=== PATIENT | male | born 1940 | race Caucasian/White ===

== ENCOUNTER → 2018-07-24 10:18 | Outpatient (CLI) | payer MEDICARE ==
--- NOTE | ~2018-07-24 | ST ---
PATIENT:SYMONE SANTOS MEDICAL RECORD: [id number] SEX: M LOCATION:[facility] ORDER #: ADMISSION DATE: 07/24/18 AGE OF PATIENT: 78 REFERRING PHYSICIAN: INTERPRETING PHYSICIAN: FARZANA XIE MD DATE OF SERVICE: 07/24/2018 PROCEDURE: Nuclear stress test. INDICATIONS: Angina, coronary artery disease, abnormal ECG, hypertension and hyperlipidemia. He was exercised under Tanner protocol for 5 minutes achieving greater than 85% of maximum heart rate response with 27 mCi of sestamibi injected at peak stress, 9 mCi used previously for rest images. FINDINGS: Gated SPECT reveals a preserved ejection fraction is 76% with decreased thickening and brightening throughout the inferior segments. SPECT IMAGING: Cardiolite was used as myocardial fusion agent. There is a fixed perfusion defect inferiorly. This includes the basal, mid, apical, and inferior segments. There is no reversibility, in fact this improves with stress showing reverse redistribution. The remaining segments are with homogeneous uptake at rest and stress. OVERALL IMPRESSION: This is minimally abnormal nuclear stress test, stable and that there is no reversible ischemia. Fixed perfusion defect inferoapically. Continue with medical management of the coronary artery disease and cardiac risk factors. TRANSINT:[id number] Voice Confirmation ID: [id number] DOCUMENT ID: [id number] FARZANA XIE MD CC: [id number] DICTATION DATE: 07/25/18 1138 CUTTING TOOL SHARPENER: 07/26/18 0017 DEP CLI 07/24/18 [facility] [address] [place] [address]
== END | disposition home or self-care (01) ==
LOC: D.HCCARDIO 10:18
PROVIDERS: ATTEND Internal Medicine Interventional Cardiology
DX: I25.119 Atherosclerotic heart disease of native coronary artery with unspecified angina pectoris (principal)

== ENCOUNTER 2018-09-14 13:24 | Inpatient (IN) | payer MEDICARE ==
[~2018-09-14] VITALS: Ht 175.3 cm; Wt 114.7 kg
[2018-09-14] VITALS (41 sets, daily range): BP systolic 88–129; BP diastolic 46–69; BMI 31.9
[2018-09-14 14:23] LABS: HEMATOCRIT 37.7 % (42.0-54.0); HEMOGLOBIN 13.6 g/dL (13.5-17.5); MCH 29.6 pg (26.0-34.0); MCHC 36.1 g/dL (31.0-37.0); MCV 82.1 fL (80.0-100.0); MEAN PLATELET VOLUME 11.1 fL (7.4-10.4); PLATELET COUNT 126 10x3/uL (130-400); RBC 4.59 10x6/uL (4.20-6.10); RDW 14.9 % (11.5-14.5); WBC 38.7 10x3/uL (4.8-10.8)
[2018-09-14 14:28] LABS: ANION GAP 16.8 mmol/L (8-16); BILIRUBIN - TOTAL 1.11 mg/dL (0.2-1.3); CALCIUM 7.1 mg/dL (8.5-10.1); CARBON DIOXIDE 17.3 mmol/L (21.0-32.0); CREATININE - SERUM 4.7 mg/dL (0.6-1.3); POTASSIUM - SERUM 4.1 mmol/L (3.5-5.1); PROTEIN - SERUM 6.4 g/dL (6.4-8.2)
[2018-09-14 14:41] LABS: LYMPHOCYTES 73 % (15-50); MONOCYTES 5 % (2-11); NEUTROPHILS 18 % (40-80)
[2018-09-14 14:42] LABS: PLATELET ESTIMATE NORMAL; ROULEAUX OCC
--- NOTE | 2018-09-14 15:58 | MORECARE ---
CASE MANAGEMENT DISCHARGE SUMMARY PATIENT: SYMONE SANTOS UNIT: [id number] ADM DATE: 09/14/18 AGE: 78 : 40 SEX: M ROOM/BED: D.2305 AUTHOR: TRACY MATHIAS PHYSICIAN: REFERRING PHYSICIAN: JOE VASQUEZ MD DATE OF SERVICE: 09/14/18 Discharge Plan Patient Name: SYMONE SANTOS [facility] [facility] 1940 Planned Disposition: Home Anticipated Discharge Date: 09/18/18 Discharge Date: Expected LOS: 4 Initial Reviewer: [email or web address] Initial Review Date: 09/14/2018 Generated: 09/14/18 4:58 pm DCPIA - Discharge Planning Initial Assessment Updated by [email or web address]: Ann Pretty on 09/14/18 3:56 pm * Is the patient Alert and Oriented? No * PCP Dr. Louis Tejada * Pharmacy [facility] in [place] * Preadmission Environment Home with Family * ADLs Independent * Equipment None * List name and contact numbers for known caregivers / representatives who currently or will assist patient after discharge: Angela Santos - Spouse - [phone] Yusra Fine - grand-daughter - [phone] * Verbal permission to speak to the caregivers and representatives has been obtained from the patient. Yes * Community resources currently utilized None * Additional services required to return to the preadmission environment? No * Can the patient safely return to the preadmission environment? Yes * Has this patient been hospitalized within the prior 30 days at any hospital? No Patient Name: SYMONE SANTOS Page [id number] at 1558 All edits/amendments must be made on the electronic document DICTATION DATE: 09/14/181557 PHOTOFLASH POWDER MIXER: TALON 09/14/181557 RPT#: [id number] DC DATE: STATUS: ADM IN [facility] [address] [place] [address] END OF REPORT
--- NOTE | 2018-09-14 16:07 | MORECARE ---
CASE MANAGEMENT DISCHARGE SUMMARY PATIENT: SYMONE SANTOS UNIT: [id number] ADM DATE: 09/14/18 AGE: 78 : 40 SEX: M ROOM/BED: D.2305 AUTHOR: MEYDOC PHYSICIAN: REFERRING PHYSICIAN: JOE VASQUEZ MD DATE OF SERVICE: 09/14/18 Discharge Plan Patient Name: SYMONE SANTOS Facility: [facility]:[place] : 1940 Planned Disposition: Home Anticipated Discharge Date: 09/18/18 Discharge Date: Expected LOS: 4 Initial Reviewer: [email or web address] Initial Review Date: 09/14/2018 Generated: 09/14/18 5:07 pm DCP- Discharge Planning Updated by [email or web address]: Ann Pretty on 09/14/18 3:[address] Patient Name: SYMONE SANTOS Admission Status: ER Accout number: [id number] Admission Date: 09-14-2018 : 1940 Admission Diagnosis: Attending: JOE VASQUEZ Current LOS: 1 Anticipated DC Date: 09-18-2018 Planned Disposition: Home Primary Insurance: [employer] CHOICE PPO MCR [employer] Discharge Planning Comments: CM met with patient's granddaughter (Yusra Fine [phone]) in the room to complete initial dc planning assessment. Patient on the vent and unable to complete assessment. CM educated Yusra on the CM role and verbal consent given by Yusra to complete assessment. CM verified patient's address, phone number, and emergency contact phone numbers. 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 At discharge Yusra is hopeful the patient will be able to return home and feels this is a safe discharge. CM discussed availability of home health, rehab services, and medical equipment. Yusra denied known discharge needs at this time. She reports patient's grandson Remington or another family member will transport him home at time of discharge. CM will continue to follow and will assist as needed with dc plans/needs. Inner Tube Tuber Machine Operator: Ann Pretty RN, [facility] DCPIA - Discharge Planning Initial Assessment Updated by [email or web address]: Ann Pretty on 09/14/18 3:56 pm * Is the patient Alert and Oriented? No * PCP Dr. Louis Tejada * Pharmacy [facility] in [place] * Preadmission Environment Home with Family * ADLs Independent * Equipment None * List name and contact numbers for known caregivers / representatives who currently or will assist patient after discharge: Angela Santos - Spouse - [phone] Yusra Fine - grand-daughter - [phone] * Verbal permission to speak to the caregivers and representatives has been obtained from the patient. Yes * Community resources currently utilized None * Additional services required to return to the preadmission environment? No * Can the patient safely return to the preadmission environment? Yes * Has this patient been hospitalized within the prior 30 days at any hospital? No Last DP export: 09/14/18 2:58 p Patient Name: SYMONE SANTOS Page [id number] at 1607 All edits/amendments must be made on the electronic document DICTATION DATE: 09/14/181606 FINGER WAVER: TALON 09/14/181606 RPT#: [id number] DC DATE: STATUS: ADM IN [facility] [address] [place] [address] END OF REPORT
--- NOTE | 2018-09-14 17:00 | NUR ---
PATIENT RECEIVED AT THIS TIME. INTUBATED AND BAGGED BY RT. TRANSFERRED TO ICU BED AND CONNECTED TO VENT. PROPOFOL, LEVOPHED, AND MERREM INFUSING VIA RIGHT PICC AND LEFT AC. BP STABLE. PT SEDATED. APPLIED SCDS AND TURNED PATIENT TO RIGHT SIDE. WILL CHECK FOR ORDERS AND CONTINUE TO MONITOR
[2018-09-14] MEDS ORDERED: LISINOPRIL5 MG PO (17:16)
[2018-09-14] MEDS ORDERED: BAYER CHEWABLE81 MG PO (17:16)
[2018-09-14] MEDS ORDERED: ZYRTEC10 MG PO (17:16)
--- NOTE | 2018-09-14 18:22 | NUR ---
OBTAINED ORDERS FROM DR. EDMONDSON FOR 15OMEQ BICARB IN D5W TO INFUSE AT 75ML/HR AND ORDER TO DC NS.
--- NOTE | 2018-09-14 19:00 | NUR ---
REPORT RECEIVED, CARE ASSUMED. PT IS IN BED INTUBATED AND SEDATED. NO NEEDS NOTED AT THIS TIME. INITIAL ASSESSMENT COMPLETED, SEE FLOWSHEET FOR DETAILS. NO SIGNS OF ACUTE DISTRESS. WILL CONTINUE TO MONITOR.
--- NOTE | 2018-09-14 21:00 | NUR ---
PT IS IN BED INTUBATED AND SEDATED AT THIS TIME. PT REPOSITIONED FOR COMFORT. ORAL CARE PERFORMED. PT'S FAMILY/FRIENDS ARE AT BEDSIDE. NO NEEDS NOTED. NO SIGNS OF ACUTE DISTRESS. WILL CONTINUE TO MONITOR.
--- NOTE | 2018-09-14 23:00 | NUR ---
REASSESSMENT COMPLETED, SEE FLOWSHEET FOR DETAILS. PT IS IN BED INTUBATED AND SEDATED. PT REPOSITIONED FOR COMFORT. ORAL CARE PERFORMED. PT HAS NO FURTHER NEEDS AT THIS TIME. NO SIGNS OF ACUTE DISTRESS. WILL CONTINUE TO MONITOR.
[2018-09-15] VITALS (93 sets, daily range): BP systolic 64–169; BP diastolic 42–82; BMI 32.0
--- NOTE | 2018-09-15 01:00 | NUR ---
PT IS IN BED INTUBATED AND SEDATED. PT REPOSITIONED FOR COMFORT. ORAL CARE PERFORMED. NO SIGNS OF ACUTE DISTRESS. WILL CONTINUE TO MONITOR.
--- NOTE | 2018-09-15 03:00 | NUR ---
REASSESSMENT COMPLETED, SEE FLOWSHEET FOR DETAILS. PT IS IN BED INTUBATED AND SEDATED. PT REPOSITIONED FOR COMFORT. ORAL CARE PERFORMED. NO SIGNS OF ACUTE DISTRESS. WILL CONTINUE TO MONITOR.
--- NOTE | 2018-09-15 05:00 | NUR ---
PT IS IN BED INTUBATED AND SEDATED. PT REPOSITIONED FOR COMFORT. ORAL CARE PERFORMED. VSS. NO SIGNS OF ACUTE DISTRESS. WILL CONTINUE TO MONITOR.
[2018-09-15 05:19] LABS: BASOPHILS 0.1 % (0-2); EOSINOPHILS 0 % (0-7); HEMATOCRIT 36.1 % (42.0-54.0); HEMOGLOBIN 12.7 g/dL (13.5-17.5); IMMATURE GRANULOCYTES 0.6 % (0-5); LYMPHOCYTES 67.9 % (15-50); MCH 29.4 pg (26.0-34.0); MCHC 35.2 g/dL (31.0-37.0); MCV 83.6 fL (80.0-100.0); MEAN PLATELET VOLUME 10.7 fL (7.4-10.4); MONOCYTES 0.7 % (2-11); NEUTROPHILS 30.7 % (40-80); PLATELET COUNT 125 10x3/uL (130-400); RBC 4.32 10x6/uL (4.20-6.10); RDW 15.6 % (11.5-14.5); WBC 38.8 10x3/uL (4.8-10.8)
[2018-09-15 05:22] LABS: ANION GAP 18.2 mmol/L (8-16); CALCIUM 7.3 mg/dL (8.5-10.1); CARBON DIOXIDE 21.1 mmol/L (21.0-32.0); CREATININE - SERUM 4.4 mg/dL (0.6-1.3); MAGNESIUM - SERUM 2.1 mg/dL (1.8-2.4); PHOSPHOROUS 6.9 mg/dL (2.5-4.9); POTASSIUM - SERUM 4.3 mmol/L (3.5-5.1)
--- NOTE | 2018-09-15 07:40 | NUR ---
REPORT RECIEVED FROM ELENA. PT SEDATED. VENT SETTING AT 70% TV 550 RR14 PEEP 8 A/C. PULSES PALPABLE. PATIENT TURNED. ALL LINES LABELED AND CAPPED. VSS. WILL CONTINUE TO MONITOR. ASSESSMENT COMPLETED.
--- NOTE | 2018-09-15 09:17 | NUR ---
patietn back from CT
--- NOTE | 2018-09-15 11:00 | NUR ---
PATIENT SEDAATED AND ON VENTILATOR. VSS. WILL CONTINUE TO MONITOR. BED LOW AND LOCKED. FAMILY AT BEDSIDE.
[2018-09-15 12:04] LABS: APTT 30.1 SECONDS (22.8-39.4); INR 1.21 (0.85-1.17); PROTIME 14.7 SECONDS (11.6-15.0)
[2018-09-15 12:44] LABS: ANION GAP 16.4 mmol/L (8-16); CARBON DIOXIDE 22.7 mmol/L (21.0-32.0); POTASSIUM - SERUM 4.1 mmol/L (3.5-5.1)
[2018-09-15 12:55] LABS: HEMATOCRIT 36.1 % (42.0-54.0); HEMOGLOBIN 12.7 g/dL (13.5-17.5); MCHC 35.2 g/dL (31.0-37.0); MCV 85.3 fL (80.0-100.0); MEAN PLATELET VOLUME 10.5 fL (7.4-10.4); PLATELET COUNT 115 10x3/uL (130-400); RBC 4.23 10x6/uL (4.20-6.10); RDW 16.1 % (11.5-14.5); WBC 33.2 10x3/uL (4.8-10.8)
--- NOTE | 2018-09-15 13:34 | NUR ---
PATIENT GONE TO CT FOR THORACENTESIS
[2018-09-15 14:19] LABS: ANISOCYTOSIS OCC; LYMPHOCYTES 40 % (15-50); MONOCYTES 5 % (2-11); NEUTROPHILS 49 % (40-80); PLATELET ESTIMATE DECREASED; SMUDGE CELLS 2+; TOXIC GRANULATION 1+
--- NOTE | 2018-09-15 14:34 | NUR ---
PT BACK FROM CT. DR YOUNGER AT BEDSIDE.
--- NOTE | 2018-09-15 15:00 | NUR ---
PATIENT TURNED. VSS. WILL CONTINUE TO MONITOR
--- NOTE | 2018-09-15 17:00 | NUR ---
CHG BATH GIVEN. COMPLETE LINEN CHANGE. ORAL CARE PROVIDED. LLOYD CARE PROVIDED. ALL LINES CAPPED AND LABELED. WILL CONTINUE TO MONITOR
--- NOTE | 2018-09-15 19:00 | NUR ---
PT POSITIONED FOR COMFORT SUPPORTED WITH PILLOWS, ORAL CARE COMPLETED, SR ON CM.
--- NOTE | 2018-09-15 21:30 | NUR ---
PT IN FOR VISITATION, UPDATE PROVIDED AND ALL QUESTIONS ANSWERED. DENIES ANY NEEDS AT THIS TIME.
--- NOTE | 2018-09-15 23:15 | NUR ---
REASSESSMENT PER FLOWSHEET, PLEASE SEE FOR DETAILS, SR ON CM, CONT POC.
[2018-09-16] VITALS (98 sets, daily range): BP systolic 74–128; BP diastolic 45–633; Ht 175.3 cm; Wt 114.7 kg
--- NOTE | 2018-09-16 00:34 | NUR ---
DR IVEY NOTIFIED OF CONSULT FOR NEW ONSET ATRIAL FIB RATE IN 160'S TO 170'S- ORDERS RECEIVED.
--- NOTE | 2018-09-16 01:00 | NUR ---
PT POSITIONED FOR COMFORT SUPPORTED WITH PILLOWS, ORAL CARE DONE, CONT TO MONITOR.
--- NOTE | 2018-09-16 04:43 | NUR ---
PT CONVERTED TO NSR AT 98
[2018-09-16 05:27] LABS: BASOPHILS 0.1 % (0-2); EOSINOPHILS 0.2 % (0-7); HEMATOCRIT 36.4 % (42.0-54.0); HEMOGLOBIN 12.9 g/dL (13.5-17.5); IMMATURE GRANULOCYTES 1.1 % (0-5); LYMPHOCYTES 48.1 % (15-50); MCH 29.4 pg (26.0-34.0); MCHC 35.4 g/dL (31.0-37.0); MCV 82.9 fL (80.0-100.0); MEAN PLATELET VOLUME 10.3 fL (7.4-10.4); MONOCYTES 0.2 % (2-11); NEUTROPHILS 50.3 % (40-80); PLATELET COUNT 119 10x3/uL (130-400); RBC 4.39 10x6/uL (4.20-6.10); RDW 15.5 % (11.5-14.5); WBC 37.1 10x3/uL (4.8-10.8)
--- NOTE | 2018-09-16 05:30 | NUR ---
NO VISITORS PRESENT AT THIS TIME, VSS, CONT TO MONITOR, REMAINS IN SR.
[2018-09-16 05:36] LABS: ALBUMIN 1.5 g/dL (3.4-5.0); ANION GAP 13.2 mmol/L (8-16); BILIRUBIN - TOTAL 1.74 mg/dL (0.2-1.3); CALCIUM 7.4 mg/dL (8.5-10.1); CARBON DIOXIDE 26.5 mmol/L (21.0-32.0); CREATININE - SERUM 3.3 mg/dL (0.6-1.3); MAGNESIUM - SERUM 2.2 mg/dL (1.8-2.4); PHOSPHOROUS 5.3 mg/dL (2.5-4.9); POTASSIUM - SERUM 3.7 mmol/L (3.5-5.1); PROTEIN - SERUM 5.8 g/dL (6.4-8.2); VANCOMYCIN - RANDOM 15.1 ug/mL (10.0-20.0)
[2018-09-16 14:18] LABS: CKMB 1.7 U/L (0.0-3.6); CREATINE KINASE 358 UL (21-232)
[2018-09-16 14:37] LABS: TROPONIN-I 0.115 ng/mL (0.000-0.060)
[2018-09-16 18:27] LABS: CKMB 1.2 U/L (0.0-3.6); CREATINE KINASE 424 UL (21-232)
[2018-09-16 18:29] LABS: TROPONIN-I 0.123 ng/mL (0.000-0.060)
--- NOTE | 2018-09-16 19:30 | NUR ---
RESUMED CARE OF PT, ASSESSMENT PER FLOWSHEET, HR SR ON CM, IV DRIPS PER FLOWSHEET, LLOYD CATH PATENT WITH CONCENTRATED CLOUDY URINE-SEDIMENT NOTED, PPP, TEMP 100.7 ORALLY-PT UNCOVERED. WILL MONITOR CLOSELY.
--- NOTE | 2018-09-16 21:30 | NUR ---
PT FAMILY IN FOR VISITATION, UPDATE PROVIDED, AND ALL QUESTIONS ANSWERED. DENIES ANY NEEDS AT THIS TIME, CONT TO MONITOR.
--- NOTE | 2018-09-16 23:30 | NUR ---
PT INCONTINENT OF SMALL DARK BROWN SMEAR, PERICARE PROVIDED, PARTIAL LINEN CHANGE DONE.
[2018-09-17] VITALS (71 sets, daily range): BP systolic 81–140; BP diastolic 48–79
--- NOTE | 2018-09-17 00:37 | NUR ---
TF RESIDUAL 3CC, RATE INCREASED TO 20CC/HR PER MD ORDER, WILL MONITOR.
[2018-09-17 00:59] LABS: CKMB 0.6 U/L (0.0-3.6)
[2018-09-17 01:05] LABS: CREATINE KINASE 260 UL (21-232); TROPONIN-I 0.111 ng/mL (0.000-0.060)
--- NOTE | 2018-09-17 01:11 | NUR ---
HR SR ON CM AT A RATE OF 73, CONTINUING TO TRY TO WEAN DOWN LEVOPHED, GTT CURRENTLY @ 12 MCG/MIN.
--- NOTE | 2018-09-17 05:20 | NUR ---
COMPLETE BATH (CHG) AND LINEN CHANGE DONE, INCONTINENT OF SMALL DARK BROWN-GREEN BM-PERICARE AND LLOYD CARE DONE. AIR OVERLAY PLACED PER MD ORDER.
[2018-09-17 05:38] LABS: HEMATOCRIT 33.5 % (42.0-54.0); HEMOGLOBIN 11.8 g/dL (13.5-17.5); MCH 29.7 pg (26.0-34.0); MCHC 35.2 g/dL (31.0-37.0); MCV 84.4 fL (80.0-100.0); MEAN PLATELET VOLUME 10.3 fL (7.4-10.4); PLATELET COUNT 116 10x3/uL (130-400); RBC 3.97 10x6/uL (4.20-6.10); RDW 15.8 % (11.5-14.5); WBC 25.2 10x3/uL (4.8-10.8)
[2018-09-17 05:40] LABS: EOSINOPHILS 1 % (0-7); LYMPHOCYTES 41 % (15-50); NEUTROPHILS 56 % (40-80); PLATELET ESTIMATE DECREASED
[2018-09-17 05:52] LABS: ALBUMIN 1.3 g/dL (3.4-5.0); ANION GAP 11.2 mmol/L (8-16); BILIRUBIN - TOTAL 1.66 mg/dL (0.2-1.3); CALCIUM 7.6 mg/dL (8.5-10.1); CARBON DIOXIDE 28.4 mmol/L (21.0-32.0); CREATININE - SERUM 2.5 mg/dL (0.6-1.3); MAGNESIUM - SERUM 2.4 mg/dL (1.8-2.4); PHOSPHOROUS 4.7 mg/dL (2.5-4.9); POTASSIUM - SERUM 3.6 mmol/L (3.5-5.1); PROTEIN - SERUM 5.5 g/dL (6.4-8.2); VANCOMYCIN - RANDOM 12.8 ug/mL (10.0-20.0)
--- NOTE | 2018-09-17 07:30 | NUR ---
ASSESSMENT COMPLETED. SEE FLOW SHEET. SR ON THE MONITOR.
--- NOTE | 2018-09-17 08:00 | NUR ---
FAMILY AT BEDSIDE. UPDATE GIVEN.
[2018-09-17 09:38] LABS: APPEARANCE CLOUDY (CLEAR); BILIRUBIN NEGATIVE (NEGATIVE); COLOR YELLOW (YELLOW); GLUCOSE NEGATIVE (NEGATIVE); KETONE NEGATIVE (NEGATIVE); NITRITE NEGATIVE (NEGATIVE); PROTEIN 1+ mg/dL (NEGATIVE); UROBILINOGEN NORMAL (NORMAL); WHITE CELLS - URINE 0-5 /hpf (0-5)
[2018-09-17 09:39] LABS: BACTERIA MANY /hpf (NONE SEEN); EPITHELIAL CELLS 0-5 /hpf (0-5)
--- NOTE | 2018-09-17 10:30 | NUR ---
RESIDUAL 10CC. INCREASE TF TO 30CC/HR VIA PUMP.
--- NOTE | 2018-09-17 12:00 | NUR ---
FAMILY AT BEDSIDE. RESIDUAL 10CC
--- NOTE | 2018-09-17 14:00 | NUR ---
NO CHANGES AT THIS TIME. SR ON THE MONITOR.
--- NOTE | 2018-09-17 16:00 | NUR ---
REPOSITIONED FOR COMFORT. SR ON THE MONITOR.
--- NOTE | 2018-09-17 17:30 | NUR ---
DR LEZAMA CALLED. UPDATE GIVEN. NO NEW ORDERS.
[2018-09-17 18:07] LABS: ACID FAST SMEAR Negative (()); AFB SPECIMEN PROCESSING Concentration (())
[2018-09-18] VITALS (57 sets, daily range): BP systolic 89–138; BP diastolic 20–93
[2018-09-18 05:18] LABS: BASOPHILS 0.1 % (0-2); EOSINOPHILS 0.6 % (0-7); HEMATOCRIT 31.8 % (42.0-54.0); HEMOGLOBIN 11.2 g/dL (13.5-17.5); IMMATURE GRANULOCYTES 0.6 % (0-5); LYMPHOCYTES 49.1 % (15-50); MCH 29.6 pg (26.0-34.0); MCHC 35.2 g/dL (31.0-37.0); MCV 84.1 fL (80.0-100.0); MEAN PLATELET VOLUME 10.1 fL (7.4-10.4); MONOCYTES 0.6 % (2-11); PLATELET COUNT 116 10x3/uL (130-400); RBC 3.78 10x6/uL (4.20-6.10); RDW 16.2 % (11.5-14.5)
[2018-09-18 05:24] LABS: WBC 13.9 10x3/uL (4.8-10.8)
[2018-09-18 05:30] LABS: ANION GAP 11.7 mmol/L (8-16); BILIRUBIN - TOTAL 1.59 mg/dL (0.2-1.3); CALCIUM 8.1 mg/dL (8.5-10.1); CARBON DIOXIDE 27.1 mmol/L (21.0-32.0); MAGNESIUM - SERUM 2.4 mg/dL (1.8-2.4); PHOSPHOROUS 4.2 mg/dL (2.5-4.9); POTASSIUM - SERUM 3.8 mmol/L (3.5-5.1); PROTEIN - SERUM 5.7 g/dL (6.4-8.2); VANCOMYCIN - RANDOM 16.3 ug/mL (10.0-20.0)
[2018-09-18 05:31] LABS: ALBUMIN 1.9 g/dL (3.4-5.0)
--- NOTE | 2018-09-18 07:18 | NUR ---
REPORT RECIEVED FROM YAIMA TADEO. VSS. WILL CONTINUE TO MONITOR. PATIENT TURNED. SCD'S ON. ASSESSMENT COMPLETED AT THIS TIME. BED LOW AND LOCKED.
--- NOTE | 2018-09-18 09:00 | NUR ---
PATIENT SEDATED. TITRATED LEVO. PT ON NORMAL SINUS. WILL CONTINUE TO MONITOR.
--- NOTE | 2018-09-18 09:54 | NUR ---
Nutrition follow-uup: Pt intubated, sedated with propofol @ 24 ml/hr Nepro infusing @ 40 ml/hr -> goal rate 45 ml/hr Labs reviewed Wt: 250# RDN following.
--- NOTE | 2018-09-18 11:30 | NUR ---
DR DAVIS AT BEDSIDE. UPDATE GIVEN.
--- NOTE | 2018-09-18 13:00 | NUR ---
ORAL CARE PROVIDED AT THIS TIME. RESPIRATORY THERAPY AT BEDSIDE. WILL CONTINUE TO MONITOR. FAMILY AT BEDSIDE.
--- NOTE | 2018-09-18 14:28 | NUR ---
RESPIRATORY THEPERAY COLLECTED SPUTUM SPECIMEN
--- NOTE | 2018-09-18 17:00 | NUR ---
CHG BATH GIVEN AT THIS TIME. COMPLETE LINEN CHANGE. VSS. WILL CONTINUE TO MONITOR
--- NOTE | 2018-09-18 17:28 | NUR ---
report given to mony canales on floor
[2018-09-19] VITALS (21 sets, daily range): BP systolic 102–130; BP diastolic 60–96
[2018-09-19 05:14] LABS: BASOPHILS 0.1 % (0-2); EOSINOPHILS 0.8 % (0-7); HEMOGLOBIN 10.9 g/dL (13.5-17.5); IMMATURE GRANULOCYTES 0.5 % (0-5); LYMPHOCYTES 57.1 % (15-50); MCHC 34.1 g/dL (31.0-37.0); MCV 85.1 fL (80.0-100.0); MONOCYTES 1.2 % (2-11); NEUTROPHILS 40.3 % (40-80); PLATELET COUNT 120 10x3/uL (130-400); RBC 3.76 10x6/uL (4.20-6.10); RDW 16.3 % (11.5-14.5); WBC 11.8 10x3/uL (4.8-10.8)
[2018-09-19 06:05] LABS: ALBUMIN 2.2 g/dL (3.4-5.0); BILIRUBIN - TOTAL 2.24 mg/dL (0.2-1.3); CALCIUM 7.8 mg/dL (8.5-10.1); CARBON DIOXIDE 26.3 mmol/L (21.0-32.0); CREATININE - SERUM 1.7 mg/dL (0.6-1.3); MAGNESIUM - SERUM 2.2 mg/dL (1.8-2.4); PHOSPHOROUS 4.1 mg/dL (2.5-4.9); POTASSIUM - SERUM 4.3 mmol/L (3.5-5.1); PROTEIN - SERUM 5.1 g/dL (6.4-8.2)
--- NOTE | 2018-09-19 07:16 | NUR ---
REPORT RECIEVED FROM YAIMA TADEO. PATIENT SEDATED. ALL VENT SETTING SEEM TO BE IN APPROPRIATE PLACE. VSS. WILL CONTINUE TO MONITOR. ORAL CARE PROVIDED. PATIENT TURNED.
--- NOTE | 2018-09-19 09:00 | NUR ---
PATIENT SEDATED. VSS. FAMILY AT BEDSIDE. WILL CONTINUE TO MONITOR
--- NOTE | 2018-09-19 11:00 | NUR ---
PATIENT TURNED. VSS. BED LOW AND LOCKED. WILL CONTINUE TO MONITOR.
--- NOTE | 2018-09-19 13:23 | NUR ---
PATIENT RESTING. WILL CONTINUE TO MONITOR. VSS. SEDATED. VENT.
--- NOTE | 2018-09-19 13:34 | NUR ---
PATIENT ON CPAP TRIALS. RESPIRATORY AT BEDSIDE.
--- NOTE | 2018-09-19 14:00 | NUR ---
CPAP TRAIL ENDED. PATIENT WAS AGITATED.
--- NOTE | 2018-09-19 15:00 | NUR ---
CHG BATH AND COMPLETE LINEN CHANGE DONE AT THIS TIME
--- NOTE | 2018-09-19 16:27 | NUR ---
FAMILY AT BEDSIDE
--- NOTE | 2018-09-19 17:00 | NUR ---
PATIENT SEDATED. VSS. FAMILY AT BEDSIDE. WILL CONTINUE TO MONITOR.
--- NOTE | 2018-09-19 18:19 | NUR ---
PARTIAL LINEN CHANGE DONE AT THIS TIME. VSS. WILL CONTINUE TO MONITOR
--- NOTE | 2018-09-19 19:49 | NUR ---
PT SEDATED, 7.5 CM ETT @ 24CM TO LIP PATENT TO VENT, OGT PATENT WITH NEPRO @ 40CC/HR, RIGHT PICC INTACT AND PATENT, BILAT SWR IN USE, SCD'S IN USE, NO DISTRESS NOTED
--- NOTE | 2018-09-19 21:00 | NUR ---
PT RESTING WITH NO CHANGES
--- NOTE | 2018-09-19 22:00 | NUR ---
noted bloody urine, placed and repositioned new maurer statlok, will cont to monitor
--- NOTE | 2018-09-19 22:05 | NUR ---
2nd dose of cardizem given, d/c'd cardizem gtt
--- NOTE | 2018-09-19 23:30 | NUR ---
PT BATHED, LOOSE BM X1, REPOSITIONED FOR COMFORT
[2018-09-20] VITALS (24 sets, daily range): BP systolic 102–134; BP diastolic 56–80
--- NOTE | 2018-09-20 00:59 | NUR ---
pt remains sedated, no distress noted, vitals stable
--- NOTE | 2018-09-20 03:19 | NUR ---
cont to have bloody urine, tube feeds increased to goal rate of 45cc/hr, no distress noted
[2018-09-20 04:11] LABS: HEMATOCRIT 31.6 % (42.0-54.0); HEMOGLOBIN 11.1 g/dL (13.5-17.5); MCHC 35.1 g/dL (31.0-37.0); MCV 85.4 fL (80.0-100.0); MEAN PLATELET VOLUME 10.4 fL (7.4-10.4); PLATELET COUNT 123 10x3/uL (130-400); RDW 16.3 % (11.5-14.5); WBC 9.3 10x3/uL (4.8-10.8)
[2018-09-20 04:46] LABS: ALBUMIN 2.3 g/dL (3.4-5.0); BILIRUBIN - TOTAL 1.23 mg/dL (0.2-1.3); CALCIUM 8.1 mg/dL (8.5-10.1); CARBON DIOXIDE 27.5 mmol/L (21.0-32.0); CREATININE - SERUM 1.4 mg/dL (0.6-1.3); MAGNESIUM - SERUM 2.1 mg/dL (1.8-2.4); PHOSPHOROUS 3.6 mg/dL (2.5-4.9); PROTEIN - SERUM 5.7 g/dL (6.4-8.2); VANCOMYCIN - RANDOM 7.4 ug/mL (10.0-20.0)
--- NOTE | 2018-09-20 05:13 | NUR ---
PT REMAINS SEDATED, ETT INTACT TO VENT ON SIMV, R PICC INTACT AND PATENT, CONT TO HAVE BLOODY URINE
[2018-09-20 05:18] LABS: POTASSIUM - SERUM 3.5 mmol/L (3.5-5.1)
--- NOTE | 2018-09-20 05:55 | NUR ---
LOOSE BM X1, CLEANED BY STAFF, 60CC RESIDUAL NOTED PER OGT
--- NOTE | 2018-09-20 07:00 | NUR ---
PATIENT SEDATED. RESPIRATORY THEPRAY AT BEDSIDE. VSS. HR 86. 110/65 BP. 95% SPO2. NEPRO AT 45. PATIENT TURNED. WILL CONTINUE TO MONITOR
[2018-09-20 08:42] LABS: ANISOCYTOSIS OCC; EOSINOPHILS 1 % (0-7); LYMPHOCYTES 40 % (15-50); MONOCYTES 3 % (2-11); NEUTROPHILS 53 % (40-80); PLATELET ESTIMATE NORMAL
--- NOTE | 2018-09-20 09:00 | NUR ---
PATIENT SEDATED. FAMILY AT BEDSIDE. VSS. CPAP TRIAL. WILL CONTINUE TO MONITOR
--- NOTE | 2018-09-20 11:00 | NUR ---
PATIENT SEDATED. CPAP TRAIL. DR DAVIS AT BEDSIDE. UPDATE GIVEN.
--- NOTE | 2018-09-20 11:11 | NUR ---
Nutrition follow-up: Pt remains intubated, sedated Mepro infusing @ 45 ml/hr goal Labs reviewed Wt: 254# On levophed at this time +BM,loose RDN following.
[2018-09-20 11:59] LABS: APTT 29.6 SECONDS (22.8-39.4); INR 1.15 (0.85-1.17); PROTIME 14.2 SECONDS (11.6-15.0)
[2018-09-20 12:01] LABS: BASOPHILS 0 % (0-2); EOSINOPHILS 0.8 % (0-7); HEMATOCRIT 33.2 % (42.0-54.0); HEMOGLOBIN 11.3 g/dL (13.5-17.5); IMMATURE GRANULOCYTES 0.4 % (0-5); LYMPHOCYTES 50.4 % (15-50); MCH 29.3 pg (26.0-34.0); MEAN PLATELET VOLUME 10.7 fL (7.4-10.4); MONOCYTES 1.3 % (2-11); NEUTROPHILS 47.1 % (40-80); PLATELET COUNT 140 10x3/uL (130-400); RBC 3.86 10x6/uL (4.20-6.10); RDW 16.6 % (11.5-14.5); WBC 10.3 10x3/uL (4.8-10.8)
[2018-09-20 12:03] LABS: ALBUMIN 2.2 g/dL (3.4-5.0); ANION GAP 11.8 mmol/L (8-16); BILIRUBIN - TOTAL 1.27 mg/dL (0.2-1.3); CALCIUM 8.2 mg/dL (8.5-10.1); CARBON DIOXIDE 26.3 mmol/L (21.0-32.0); CREATININE - SERUM 1.4 mg/dL (0.6-1.3); PROTEIN - SERUM 5.7 g/dL (6.4-8.2)
[2018-09-20 12:04] LABS: POTASSIUM - SERUM 4.1 mmol/L (3.5-5.1)
--- NOTE | 2018-09-20 13:00 | NUR ---
CHG AND COMPLETE LINEN CHANGE DONE AT THIS TIME.
--- NOTE | 2018-09-20 15:15 | NUR ---
PATIENT SEDATED. VSS. BED LOW AND LOCKED. WILL CONTINUE TO MONITOR. PATIENT TURNED. ALL LINES LABELED AND CAPPED.
--- NOTE | 2018-09-20 17:00 | NUR ---
PATIENT SEDATED. FAMILY AT BEDSIDE. VSS. WILL CONTINUE TO MONITOR
--- NOTE | 2018-09-20 18:05 | MORECARE ---
CASE MANAGEMENT DISCHARGE SUMMARY PATIENT: SYMONE SANTOS UNIT: [id number] ADM DATE: 09/14/18 AGE: 78 : 40 SEX: M ROOM/BED: D.2303 AUTHOR: MEY,DOC PHYSICIAN: REFERRING PHYSICIAN: JOE VASQUEZ MD DATE OF SERVICE: 09/20/18 Discharge Plan Patient Name: SYMONE SANTOS Facility: [facility]:[place] : 1940 Planned Disposition: Home Anticipated Discharge Date: 09/18/18 Discharge Date: Expected LOS: 4 Initial Reviewer: [email or web address] Initial Review Date: 09/14/2018 Generated: 09/20/18 7:04 pm Comments DCP- Discharge Planning Updated by [id number]: Fely Bear on 09/20/18 5:[address] CM spoke with respiratory and plans for Bronch on and possible extubation the next day. Fariha states that they have been weaning down vent. May want to wait on LTACH eval. CM will continue to follow and assist as needed with discharge planning / needs. DCP- Discharge Planning Updated by [id number]: Ann Pretty on 09/14/18 3:[address] Patient Name: SYMONE SANTOS Admission Status: ER Accout number: [id number] Admission Date: 09-14-2018 : 1940 Admission Diagnosis: Attending: JOE VASQUEZ Current LOS: 1 Anticipated DC Date: 09-18-2018 Planned Disposition: Home Primary Insurance: [employer] CHOICE PPO MCR [facility] Discharge Planning Comments: CM met with patient's granddaughter (Yusra Fine [phone]) in the room to complete initial dc planning assessment. Patient on the vent and unable to complete assessment. CM educated Yusra on the CM role and verbal consent given by Yusra to complete assessment. CM verified patient's address, phone number, and emergency contact phone numbers. 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 At discharge Yusra is hopeful the patient will be able to return home and feels this is a safe discharge. CM discussed availability of home health, rehab services, and medical equipment. Yusra denied known discharge needs at this time. She reports patient's grandson Remington or another family member will transport him home at time of discharge. CM will continue to follow and will assist as needed with dc plans/needs. Surgical Garment Assembler: nAn Pretty RN, [facility] DCPIA - Discharge Planning Initial Assessment Updated by [email or web address]: Ann Pretty on 09/14/18 3:56 pm * Is the patient Alert and Oriented? No * PCP Dr. Louis Tejada * Pharmacy [facility] in [place] * Preadmission Environment Home with Family * ADLs Independent * Equipment None * List name and contact numbers for known caregivers / representatives who currently or will assist patient after discharge: Angela Santos - Spouse - [phone] Yusra Fine - grand-daughter - [phone] * Verbal permission to speak to the caregivers and representatives has been obtained from the patient. Yes * Community resources currently utilized None * Additional services required to return to the preadmission environment? No * Can the patient safely return to the preadmission environment? Yes * Has this patient been hospitalized within the prior 30 days at any hospital? No Last DP export: 09/14/18 3:07 p Patient Name: SYMONE SANTOS Page [id number] at 1805 All edits/amendments must be made on the electronic document DICTATION DATE: 09/20/181803 INTERNAL AUDIT CONSULTANT: TALON 09/20/181803 RPT#: [id number] DC DATE: STATUS: ADM IN [facility] [address] [place] [address] END OF REPORT
--- NOTE | 2018-09-20 19:30 | NUR ---
PT SEDATED ON VENT WITH ETT IN PLACE, OGT INTACT WITH NEPRO @ 45CC/HR, R PICC INTACT AND PATENT, BLOODY URINE NOTED
--- NOTE | 2018-09-20 21:30 | NUR ---
REMAINS SEDATED, NO CHANGE IN STATUS
--- NOTE | 2018-09-20 23:30 | NUR ---
ASSESSMENT COMPLETED, GIVEN CHG BATH, REPOSITIONED FOR COMFORT
[2018-09-21] VITALS (24 sets, daily range): BP systolic 98–152; BP diastolic 57–100
--- NOTE | 2018-09-21 01:30 | NUR ---
PT RESTING QUIETLY, ORAL CARE DONE, REPOSITIONED
--- NOTE | 2018-09-21 03:45 | NUR ---
[facility] DRAWN FROM [facility]
[2018-09-21 04:32] LABS: HEMATOCRIT 30.1 % (42.0-54.0); HEMOGLOBIN 10.2 g/dL (13.5-17.5); MCH 29.2 pg (26.0-34.0); MCHC 33.9 g/dL (31.0-37.0); MCV 86.2 fL (80.0-100.0); MEAN PLATELET VOLUME 10.7 fL (7.4-10.4); PLATELET COUNT 143 10x3/uL (130-400); RBC 3.49 10x6/uL (4.20-6.10); RDW 16.4 % (11.5-14.5); WBC 9.4 10x3/uL (4.8-10.8)
[2018-09-21 04:39] LABS: ANION GAP 12.1 mmol/L (8-16); CALCIUM 7.9 mg/dL (8.5-10.1); CARBON DIOXIDE 25.7 mmol/L (21.0-32.0); CREATININE - SERUM 1.4 mg/dL (0.6-1.3); POTASSIUM - SERUM 3.8 mmol/L (3.5-5.1)
--- NOTE | 2018-09-21 05:46 | NUR ---
PT REMAINS SEDATED, RESTLESS AT TIMES, ETT IN PLACE TO VENT ON SIMV, URINE CONT TO BE BLOODY, NO DISTRESS NOTED
[2018-09-21 05:55] LABS: LYMPHOCYTES 36 % (15-50); NEUTROPHILS 63 % (40-80); PLATELET ESTIMATE DECREASED; SMUDGE CELLS 1+
--- NOTE | 2018-09-21 07:23 | NUR ---
TURNED OFF SEDATION FOR CPAP TRIALS
--- NOTE | 2018-09-21 09:00 | NUR ---
PATIENT RESTING IN BED SEDATED ON VENTILATOR. VSS. ORAL CARE GIVEN
--- NOTE | 2018-09-21 13:00 | NUR ---
PATIENT HAD LARGE INCONTINENT BM. NURSES CLEANED AND CHANGED ALL LINENS
[2018-09-21 16:08] LABS: ACID FAST SMEAR Negative (()); AFB SPECIMEN PROCESSING Concentration (())
--- NOTE | 2018-09-21 19:30 | NUR ---
PT SEDATED, ETT PATENT TO VENT, LUNGS CLEAR, R PICC INTACT WITH NS@75CC/HR, DIPRIVAN GTT@15CC/HR AND FENTANYL @2CC/HR, BLOOD TINGED URINE NOTED, REMAINS IN SWR
--- NOTE | 2018-09-21 21:30 | NUR ---
PT REMAINS SEDATED, NO CHANGES, VITALS STABLE
--- NOTE | 2018-09-21 23:34 | NUR ---
NO CHANGE IN STATUS
[2018-09-22] VITALS (28 sets, daily range): BP systolic 94–178; BP diastolic 48–96
--- NOTE | 2018-09-22 02:34 | NUR ---
PT BATHED, NO CHANES IN STATUS
--- NOTE | 2018-09-22 03:30 | NUR ---
PT AGITATED EASILY WITH STIMULI, REMAINS IN RESTRAINTS
[2018-09-22 04:23] LABS: BASOPHILS 0.1 % (0-2); EOSINOPHILS 1.2 % (0-7); HEMOGLOBIN 9.7 g/dL (13.5-17.5); IMMATURE GRANULOCYTES 0.2 % (0-5); LYMPHOCYTES 47.4 % (15-50); MCH 29.1 pg (26.0-34.0); MCHC 33.4 g/dL (31.0-37.0); MCV 87.1 fL (80.0-100.0); MEAN PLATELET VOLUME 10.3 fL (7.4-10.4); MONOCYTES 0.7 % (2-11); NEUTROPHILS 50.4 % (40-80); PLATELET COUNT 151 10x3/uL (130-400); RBC 3.33 10x6/uL (4.20-6.10); RDW 16.7 % (11.5-14.5); WBC 9.4 10x3/uL (4.8-10.8)
[2018-09-22 04:42] LABS: ANION GAP 12.7 mmol/L (8-16); CALCIUM 7.8 mg/dL (8.5-10.1); CARBON DIOXIDE 23.5 mmol/L (21.0-32.0); CREATININE - SERUM 1.5 mg/dL (0.6-1.3); POTASSIUM - SERUM 4.2 mmol/L (3.5-5.1)
--- NOTE | 2018-09-22 06:02 | NUR ---
PT RESTING QUIETLY, VITAL SIGNS STABLE, OPENS EYES TO STIMULI
--- NOTE | 2018-09-22 08:54 | NUR ---
0700 ASSESSMENT COMPLETE RECEIVED BEDSIDE REPORT FROM JULIANA TADEO.PROPOFOL INFUSING AT 21ML OR 35 MCK/KG/MIN, FENTANYL AT 2ML/HR OR 100 MCG/MIN, AND 1/2 NS AT 75ML/HR ALL INFUSING TO RIGHT UPPER ARM PIC. VENT SETTINGS AT SIMV 12 FIO2 30% TV 600 PEEP 5
--- NOTE | 2018-09-22 09:06 | NUR ---
0830 SPECIMIN DRAWN FROM [facility] AND TAKEN TO LAB.
--- NOTE | 2018-09-22 09:06 | NUR ---
0900 WEANING PROCESS INITIATED REDUCED PROPOFOL BY HALF TO 17.5 MCG/KG/MIN
--- NOTE | 2018-09-22 09:24 | NUR ---
Nutrition follow-up: Pt intubated, weaning in progress. Sedation being reduced Nepro @ 45 ml/hr; pt tolerating Labs reviewed Wt: 257# RDN following.
--- NOTE | 2018-09-22 09:28 | NUR ---
0901 VENT SETTINGS CHANGED TO CPAP PS 10 PEEP 5 O2 30%
--- NOTE | 2018-09-22 10:44 | NUR ---
0900 TUBE FEEDING WAS TURNED OFF AT 0900
--- NOTE | 2018-09-22 10:46 | NUR ---
1015 RADIOLOGY NOTIFIED OF THORACENTHESIS WITH DR ROCKWELL. CONSENT SIGNED BY SPOUSE
--- NOTE | 2018-09-22 13:54 | NUR ---
0800 BICARB GTT TURNED OFF AT 0800
--- NOTE | 2018-09-22 13:57 | NUR ---
1045 PROPOFOL INCREASED TO 35MCG/KG/MIN DAFTER FAILING CPAP TRIAL. REMAINS NPO FOR PROCEEDURE
--- NOTE | 2018-09-22 14:00 | NUR ---
1200 REMAINS CALM AND RESTING QUIETLY
[2018-09-22 14:46] LABS: BASOPHILS 0.1 % (0-2); EOSINOPHILS 0.8 % (0-7); HEMATOCRIT 28.9 % (42.0-54.0); HEMOGLOBIN 9.5 g/dL (13.5-17.5); IMMATURE GRANULOCYTES 0.5 % (0-5); LYMPHOCYTES 49.9 % (15-50); MCH 29.1 pg (26.0-34.0); MCHC 32.9 g/dL (31.0-37.0); MCV 88.4 fL (80.0-100.0); MEAN PLATELET VOLUME 10.8 fL (7.4-10.4); MONOCYTES 1.3 % (2-11); NEUTROPHILS 47.4 % (40-80); PLATELET COUNT 158 10x3/uL (130-400); RBC 3.27 10x6/uL (4.20-6.10); RDW 16.3 % (11.5-14.5); WBC 10.7 10x3/uL (4.8-10.8)
[2018-09-22 14:57] LABS: APTT 30.3 SECONDS (22.8-39.4); INR 1.33 (0.85-1.17); PROTIME 15.9 SECONDS (11.6-15.0)
[2018-09-22 14:59] LABS: ANION GAP 11.1 mmol/L (8-16); CALCIUM 7.5 mg/dL (8.5-10.1); CARBON DIOXIDE 24.2 mmol/L (21.0-32.0); CREATININE - SERUM 1.4 mg/dL (0.6-1.3); POTASSIUM - SERUM 4.3 mmol/L (3.5-5.1)
--- NOTE | 2018-09-22 15:42 | NUR ---
1535 TRANSPORTED TO RADIOLOGY WITH RN X 2 AND GRACIELA, RESPIRATORY ON PORTABLE VENT FOR THORACENTHSIS TO RIGHT SIDE CONSENT SIGNED
--- NOTE | 2018-09-22 15:46 | NUR ---
1400 REMAINS SEDATED AND NPO FOR PROCEEDURE
--- NOTE | 2018-09-22 17:35 | NUR ---
7936 RETURNED TO ICU FROM PROCEEDURE INITIATED FREQUENT VS. NOTOFIED SPOUSE THAT PATIENT WAS BACK IN HIS ROOM
[2018-09-22 17:40] LABS: PROTEIN - BODY FLUID 2.8 G/DL
--- NOTE | 2018-09-22 18:05 | NUR ---
1800 SEDATED RESTING QUIETLY CHEST XRAY COMPLETED
--- NOTE | 2018-09-22 18:26 | MORECARE ---
CASE MANAGEMENT DISCHARGE SUMMARY PATIENT: SYMONE SANTOS UNIT: [id number] ADM DATE: 09/14/18 AGE: 78 : 40 SEX: M ROOM/BED: D.2303 AUTHOR: MEY,DOC PHYSICIAN: REFERRING PHYSICIAN: JOE VASQUEZ MD DATE OF SERVICE: 09/22/18 Discharge Plan Patient Name: SYMONE SANTOS Facility: [facility]:[place] : 1940 Planned Disposition: Home Anticipated Discharge Date: 09/18/18 Discharge Date: Expected LOS: 4 Initial Reviewer: [email or web address] Initial Review Date: 09/14/2018 Generated: 09/22/18 7:26 pm Comments DCP- Discharge Planning Updated by [email or web address]: Fely Bear on 09/22/18 5:[address] CM spoke with patient's regarding potential placement / rehab. Spouse at this time isn't wanting to talk about any kind of placement. She stated that she doesn't drive and it would be best if he could have therapy at home. CM spoke with Dr. Casarez he stated that at this time it is to early to think of LTACH placement. CM will continue to follow and assist as needed with discharge planning /needs DCP- Discharge Planning Updated by [email or web address]: Fely Bear on 09/20/18 5:[address] CM spoke with respiratory and plans for Bronch on and possible extubation the next day. Fariha states that they have been weaning down vent. May want to wait on LTACH eval. CM will continue to follow and assist as needed with discharge planning / needs. DCP- Discharge Planning Updated by [id number]: Ann Pretty on 09/14/18 3:[address] Patient Name: SYMONE SANTOS Admission Status: ER Accout number: [id number] Admission Date: 09-14-2018 : 1940 Admission Diagnosis: Attending: JOE VASQUEZ Current LOS: 1 Anticipated DC Date: 09-18-2018 Planned Disposition: Home Primary Insurance: [employer] CHOICE PPO MCR ADVANT Discharge Planning Comments: CM met with patient's granddaughter (Yusra Fine [phone]) in the room to complete initial dc planning assessment. Patient on the vent and unable to complete assessment. CM educated Yusra on the CM role and verbal consent given by Yusra to complete assessment. CM verified patient's address, phone number, and emergency contact phone numbers. 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 At discharge Yusra is hopeful the patient will be able to return home and feels this is a safe discharge. CM discussed availability of home health, rehab services, and medical equipment. Yusra denied known discharge needs at this time. She reports patient's grandson Remington or another family member will transport him home at time of discharge. CM will continue to follow and will assist as needed with dc plans/needs. Shift Supervisor Film Processing: Ann Pretty RN, [facility] DCPIA - Discharge Planning Initial Assessment Updated by [email or web address]: Ann Pretty on 09/14/18 3:56 pm * Is the patient Alert and Oriented? No * PCP Dr. Louis Tejada * Pharmacy [facility] in [place] * Preadmission Environment Home with Family * ADLs Independent * Equipment None * List name and contact numbers for known caregivers / representatives who currently or will assist patient after discharge: Angela Santos - Spouse - [phone] Yusra Fine - grand-daughter - [phone] * Verbal permission to speak to the caregivers and representatives has been obtained from the patient. Yes * Community resources currently utilized None * Additional services required to return to the preadmission environment? No * Can the patient safely return to the preadmission environment? Yes * Has this patient been hospitalized within the prior 30 days at any hospital? No Last DP export: 09/20/18 5:05 p Patient Name: SYMONE SANTOS Page [phone] at 1826 All edits/amendments must be made on the electronic document DICTATION DATE: 09/22/181825 LEATHER TANNER: TALON 09/22/181825 RPT#: [id number] DC DATE: STATUS: ADM IN [facility] [address] [place] [address] END OF REPORT
[2018-09-22 18:39] LABS: EOS BF 3 %; MACROPHAGES BF 6 %; MESOTHELIALS BF 11 %; NEUT - BF 24 %
--- NOTE | 2018-09-22 19:15 | NUR ---
RECEIVED CARE OF PT, ASSESSMENT PER FLOWSHEET. PT POSITIONED FOR COMFORT SUPPORTED WITH PILLOWS, HR SR ON CM, AROUSES TO VOICE BUT DOES NOT FOLLOW COMMANDS, LLODY CATH PATENT, PPP.
[2018-09-23] VITALS (24 sets, daily range): BP systolic 99–141; BP diastolic 50–79
[2018-09-23 05:55] LABS: BASOPHILS 0.2 % (0-2); EOSINOPHILS 0.9 % (0-7); HEMATOCRIT 28.2 % (42.0-54.0); HEMOGLOBIN 9.3 g/dL (13.5-17.5); IMMATURE GRANULOCYTES 0.3 % (0-5); LYMPHOCYTES 43.2 % (15-50); MCH 29.2 pg (26.0-34.0); MCV 88.4 fL (80.0-100.0); MONOCYTES 1.7 % (2-11); NEUTROPHILS 53.7 % (40-80); PLATELET COUNT 181 10x3/uL (130-400); RBC 3.19 10x6/uL (4.20-6.10); RDW 16.5 % (11.5-14.5); WBC 9.9 10x3/uL (4.8-10.8)
[2018-09-23 06:24] LABS: ANION GAP 10.6 mmol/L (8-16); CALCIUM 7.6 mg/dL (8.5-10.1); CARBON DIOXIDE 23.6 mmol/L (21.0-32.0); CREATININE - SERUM 1.6 mg/dL (0.6-1.3); POTASSIUM - SERUM 4.2 mmol/L (3.5-5.1); PROTEIN - SERUM 5.4 g/dL (6.4-8.2)
--- NOTE | 2018-09-23 07:40 | NUR ---
PAGED DR BETANCUR REGARDING CONSULT.
--- NOTE | 2018-09-23 09:12 | NUR ---
NO ACUTE DISTRESS NOTED. NO CHANGE. ORAL CARE AND REPOSITIONING PROVIDED Q2H. WILL CONTINUE PLAN OF CARE.
[2018-09-23 10:22] LABS: INR 1.26 (0.85-1.17); PROTIME 15.3 SECONDS (11.6-15.0)
[2018-09-23 10:51] LABS: APTT 37.9 SECONDS (22.8-39.4)
--- NOTE | 2018-09-23 11:09 | NUR ---
PLACED ON CPAP TRIAL AT THIS TIME. PT TOLERATING WELL, METAL CASKET MAKER AND RT AT BEDSIDE. WILL DECREASE SEDATION FOR CPAP TRIAL. VSS. WILL CONTINUE PLAN OF CARE.
--- NOTE | 2018-09-23 15:46 | NUR ---
TEMP 101.6, PER DR MAYER, OBTAIN BLOOD CULTURES, UA, AND ADMIN TYLENOL. NO ACUTE DISTRESS NOTED. WILL CONTINUE PLAN OF CARE.
[2018-09-23 16:02] LABS: APPEARANCE CLEAR (CLEAR); BILIRUBIN NEGATIVE (NEGATIVE); COLOR YELLOW (YELLOW); GLUCOSE NEGATIVE (NEGATIVE); KETONE NEGATIVE (NEGATIVE); NITRITE NEGATIVE (NEGATIVE); PROTEIN TRACE mg/dL (NEGATIVE); SPECIFIC GRAVITY 1.015 (1.005-1.020); UROBILINOGEN NORMAL (NORMAL)
--- NOTE | 2018-09-23 16:42 | NUR ---
CHG BATH GIVEN USING HIPICLENS AT THIS TIME. NO ACUTE DISTRESS NOTED. PT TURNED Q2H. ORAL CARE PROVIDED Q2H. WILL CONTINUE PLAN OF CARE.
--- NOTE | 2018-09-23 18:18 | NUR ---
NO ACUTE DISTRESS NOTED. NO CHANGE. VSS. TURNED Q2H. WILL CONTINUE PLAN OF CARE.
[2018-09-24] VITALS (24 sets, daily range): BP systolic 93–141; BP diastolic 49–73
[2018-09-24 05:41] LABS: BASOPHILS 0.1 % (0-2); EOSINOPHILS 0.9 % (0-7); HEMATOCRIT 28.6 % (42.0-54.0); HEMOGLOBIN 9.5 g/dL (13.5-17.5); IMMATURE GRANULOCYTES 0.4 % (0-5); LYMPHOCYTES 39.9 % (15-50); MCH 29.3 pg (26.0-34.0); MCHC 33.2 g/dL (31.0-37.0); MCV 88.3 fL (80.0-100.0); MEAN PLATELET VOLUME 10.9 fL (7.4-10.4); MONOCYTES 1.1 % (2-11); NEUTROPHILS 57.6 % (40-80); PLATELET COUNT 194 10x3/uL (130-400); RBC 3.24 10x6/uL (4.20-6.10); RDW 16.7 % (11.5-14.5); WBC 11.2 10x3/uL (4.8-10.8)
[2018-09-24 06:06] LABS: ALBUMIN 2.6 g/dL (3.4-5.0); ANION GAP 12.6 mmol/L (8-16); BILIRUBIN - TOTAL 2.25 mg/dL (0.2-1.3); CALCIUM 7.7 mg/dL (8.5-10.1); CARBON DIOXIDE 22.9 mmol/L (21.0-32.0); CREATININE - SERUM 1.9 mg/dL (0.6-1.3); POTASSIUM - SERUM 4.5 mmol/L (3.5-5.1); PROTEIN - SERUM 5.7 g/dL (6.4-8.2)
--- NOTE | 2018-09-24 08:52 | NUR ---
LYING IN BED ON VENT AT THIS TIME. NO ACUTE DISTRESS NOTED. VSS. ORAL CARE PROVIDED Q2H, PT REPOSITIONED Q2H. WILL CONTINUE PLAN OF CARE.
--- NOTE | 2018-09-24 10:49 | NUR ---
NO ACUTE DISTRESS NOTED. NO CHANGE. PT TURNED Q2H. ORAL CARE PROVIDED Q2H. WILL CONTINUE PLAN OF CARE.
--- NOTE | 2018-09-24 11:47 | NUR ---
SEDATION DECREASED FOR CPAP TRIAL.
--- NOTE | 2018-09-24 13:04 | NUR ---
OGT RESIDUALS NOTED AT 5ML. NO ACUTE DISTRESS NOTED. NO CHANGE. VSS. PT TURNED Q2H. ORAL CARE PROVIDED Q2H.
--- NOTE | 2018-09-24 15:28 | NUR ---
NO ACUTE DISTRESS NOTED. NO CHANGE. VSS. BED ALARM ON. ORAL CARE AND REPOSITIONING PROVIDED Q2H. WILL CONTINUE PLAN OF CARE.
--- NOTE | 2018-09-24 16:28 | NUR ---
FAMILY AT BEDSIDE. AT THIS TIME. NO ACUTE DISTRESS NOTED. WILL CONTINUE PLAN OF CARE.
--- NOTE | 2018-09-24 18:05 | NUR ---
CHG BATH PROVIDED AT THIS TIME ALONG WITH TOTAL LINEN CHANGE. ALSO AT THIS TIME DRESSING CHANGE PROVIDED, OLD DRESSING NO LONGER ADHESIVE. NO ACUTE DISTRESS NOTED. PT TURNED Q2H. ORAL CARE PROVIDED Q2H. WILL CONTINUE PLAN OF CARE.
--- NOTE | 2018-09-24 20:25 | NUR ---
PT IN FOR VISITATION, UPDATE PROVIDED, ALL QUESTIONS ANSWERED.
[2018-09-24 22:06] LABS: ACID FAST SMEAR Negative (()); AFB SPECIMEN PROCESSING Concentration (())
[2018-09-25] VITALS (29 sets, daily range): BP systolic 76–126; BP diastolic 44–71
--- NOTE | 2018-09-25 04:26 | NUR ---
CHANGE FIO2 TO 50% PER MORNING ABG PO2 65 AND SATS 90%
--- NOTE | 2018-09-25 04:26 | NUR ---
ABG'S REVIEWED, FIO2 CHANGED FROM 40 T0 50% PER RT DUE TO DECREASED PO2.
[2018-09-25 05:29] LABS: BASOPHILS 0.1 % (0-2); EOSINOPHILS 0.9 % (0-7); HEMATOCRIT 27.6 % (42.0-54.0); HEMOGLOBIN 9.1 g/dL (13.5-17.5); IMMATURE GRANULOCYTES 0.2 % (0-5); LYMPHOCYTES 36.8 % (15-50); MCV 87.9 fL (80.0-100.0); MEAN PLATELET VOLUME 11.4 fL (7.4-10.4); MONOCYTES 1.3 % (2-11); NEUTROPHILS 60.7 % (40-80); PLATELET COUNT 217 10x3/uL (130-400); RBC 3.14 10x6/uL (4.20-6.10); WBC 11.4 10x3/uL (4.8-10.8)
--- NOTE | 2018-09-25 05:55 | NUR ---
PT IN FOR VISITATION, DENIES ANY NEEDS AT THIS TIME.
[2018-09-25 06:04] LABS: ALBUMIN 2.5 g/dL (3.4-5.0); ANION GAP 14.4 mmol/L (8-16); BILIRUBIN - TOTAL 2.6 mg/dL (0.2-1.3); CALCIUM 8.1 mg/dL (8.5-10.1); CARBON DIOXIDE 23.4 mmol/L (21.0-32.0); CREATININE - SERUM 2.2 mg/dL (0.6-1.3); MAGNESIUM - SERUM 2.4 mg/dL (1.8-2.4); PHOSPHOROUS 5.3 mg/dL (2.5-4.9); POTASSIUM - SERUM 4.8 mmol/L (3.5-5.1); PROTEIN - SERUM 5.7 g/dL (6.4-8.2)
--- NOTE | 2018-09-25 07:00 | NUR ---
PATIENT RESTING IN BED SEDATED ON VENTILATOR. VSS. WILL CONTINUE TO MONITOR
--- NOTE | 2018-09-25 09:08 | NUR ---
Nutrition follow-up: Pt remains intubated, sedated Nepro @ 45 ml/hr via OGT CPAP trials over the weekend labs reviewed pt with increased temp Wt: 269# RDN following.
--- NOTE | 2018-09-25 09:30 | NUR ---
PATIENT VENTILATOR SET TO SPONTANEOUS MODE. SEDATION TURNED DOWN TO 15MCG/KG/MIN OF PROPOFOL. RESPIRATIONS ARE 30/MINUTE. WILL CONTINUE TO MONITOR
--- NOTE | 2018-09-25 11:00 | NUR ---
PT ON SPONTANEOUS MODE OF VENTILATOR. BREATHING AROUND 30 TIMES/MINUTE. VSS. WILL CONTINUE TO MONITOR
--- NOTE | 2018-09-25 13:00 | NUR ---
PATIENT VSS. BACK ON SIMV MODE DUE TO HYPERVENTILATRION. WILL CONTINUE TO MONITOR
--- NOTE | 2018-09-25 15:00 | NUR ---
VSS. TURNED AND SUCTIONED.
--- NOTE | 2018-09-25 17:14 | NUR ---
PATIENT HAD INCONTINENT BM. CLEANED PATIENT AND CHANGED ALL LINENS. GAVE BED BATH. SUCTIONED AND TURNED PATIENT TO RIGHT SIDE.
--- NOTE | 2018-09-25 18:15 | NUR ---
CHANGED OUT TUBING FOR OGT NEPRO TUBE FEED.
--- NOTE | 2018-09-25 18:20 | MORECARE ---
CASE MANAGEMENT DISCHARGE SUMMARY PATIENT: SYMONE SANTOS UNIT: [id number] ADM DATE: 09/14/18 AGE: 78 : 40 SEX: M ROOM/BED: D.2303 AUTHOR: MEY,DOC PHYSICIAN: REFERRING PHYSICIAN: JOE VASQUEZ MD DATE OF SERVICE: 09/25/18 Discharge Plan Patient Name: SYMONE SANTOS Facility: [facility]:[place] : 1940 Planned Disposition: Home Anticipated Discharge Date: 09/18/18 Discharge Date: Expected LOS: 4 Initial Reviewer: [email or web address] Initial Review Date: 09/14/2018 Generated: 09/25/18 7:20 pm Comments DCP- Discharge Planning Updated by [email or web address]: Fely Bear on 09/25/18 5:[address] CM received order for LTACH and was later notified that Dr. Benjamin requested to hold off on LtACH for now. CM will continue to follow and assist as needed with d/c planning/ needs. DCP- Discharge Planning Updated by [id number]: Fely Bear on 09/22/18 5:[address] CM spoke with patient's regarding potential placement / rehab. Spouse at this time isn't wanting to talk about any kind of placement. She stated that she doesn't drive and it would be best if he could have therapy at home. CM spoke with Dr. Casarez he stated that at this time it is to early to think of LTACH placement. CM will continue to follow and assist as needed with discharge planning /needs DCP- Discharge Planning Updated by [email or web address]: Fely Bear on 09/20/18 5:[address] CM spoke with respiratory and plans for Bronch on and possible extubation the next day. Fariha states that they have been weaning down vent. May want to wait on LTACH eval. CM will continue to follow and assist as needed with discharge planning / needs. DCP- Discharge Planning Updated by [email or web address]: Ann Pretty on 09/14/18 3:[address] Patient Name: SYMONE SANTOS Admission Status: ER Accout number: [id number] Admission Date: 09-14-2018 : 1940 Admission Diagnosis: Attending: JOE VASQUEZ Current LOS: 1 Anticipated DC Date: 09-18-2018 Planned Disposition: Home Primary Insurance: [employer] CHOICE PPO MCR ADVANT Discharge Planning Comments: CM met with patient's granddaughter (Yusra Fine [phone]) in the room to complete initial dc planning assessment. Patient on the vent and unable to complete assessment. CM educated Yusra on the CM role and verbal consent given by Yusra to complete assessment. CM verified patient's address, phone number, and emergency contact phone numbers. 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 At discharge Yusra is hopeful the patient will be able to return home and feels this is a safe discharge. CM discussed availability of home health, rehab services, and medical equipment. Yusra denied known discharge needs at this time. She reports patient's grandson Remington or another family member will transport him home at time of discharge. CM will continue to follow and will assist as needed with dc plans/needs. Store Administrator: Ann Pretty RN, [facility] DCPIA - Discharge Planning Initial Assessment Updated by [id number]: Ann Pretty on 09/14/18 3:56 pm * Is the patient Alert and Oriented? No * PCP Dr. Louis Tejada * Pharmacy [facility] in [place] * Preadmission Environment Home with Family * ADLs Independent * Equipment None * List name and contact numbers for known caregivers / representatives who currently or will assist patient after discharge: Angela Santos - Spouse - [phone] Yusra Fine - grand-daughter - [phone] * Verbal permission to speak to the caregivers and representatives has been obtained from the patient. Yes * Community resources currently utilized None * Additional services required to return to the preadmission environment? No * Can the patient safely return to the preadmission environment? Yes * Has this patient been hospitalized within the prior 30 days at any hospital? No Last DP export: 09/22/18 5:26 p Patient Name: SYMONE SANTOS Page [id number] at 5580 All edits/amendments must be made on the electronic document DICTATION DATE: 09/25/181818 POLICY VALUE CALCULATOR: TALON 09/25/181818 RPT#: [id number] MD DATE: STATUS: ADM IN [facility] [address] [place] [address] END OF REPORT
--- NOTE | 2018-09-25 19:15 | NUR ---
BEDSIDE SHIFT REPORT GIVEN BY DEPARTING RN. PT LAYING IN BED SEDATED ON VENT WITH RESTRAINTS. REPOSITIONED FOR COMFORT. NO RESPONSE FROM PT. TACTILE STIMULATION PRODUCED EYES TO OPEN. PERRLA. NO SS OF DISTRESS OR PAIN. ADRIAN PICC LINE INFUSING MD ORDERED MEDS. CRACKLES AUSCULTATED IN BASES OF BOTH LUNGS. OGT STOPPED AT THIS TIME D/T RESIDUAL OFF 100. PLACEMENT CONFIRMED. BS HEARD IN ALL FOUR QUADS. NOTED EDEMA. F/C DRAINING DARK RED URINE WITH VISIBLE CLOTS. ASSESSMENT COMPLETE. SEE FLOWSHEET FOR FULL DETAILS. REPOSITIONED. ORAL CARE PROVIDED. SAFETY MEASURES IN PLACE. CBIR.
--- NOTE | 2018-09-25 22:13 | NUR ---
BM NOTED. BROWN LIQUID. KOREY CARE PERFORMED. LINENS CHANGED. REPOSITIONED. ORAL CARE PROVIDED. PASTE APPLIED TO BUTTOCKS FOR EXCORIATION. PILLOWS APPLIED TO BONY PROMS.
--- NOTE | 2018-09-25 23:13 | NUR ---
LEVOPHED INITIATED. SEE MAR AND DRIP FLOWSHEET FOR FULL DETAILS.
--- NOTE | 2018-09-25 23:18 | NUR ---
REASSESSMENT COMPLETE. PT LAYING IN BED SHOWING NO SS OF DISTRESS. REPOSITIONED. ORAL CARE PROVIDED. RESIDUAL CHECKED. 260 CC NOTED. TUBE FEEDING REMAINS OFF. WILL CHECK AGAIN IN TWO HOURS. SAFETY MREASURES IN PLACE. CBIR.
[2018-09-26] VITALS (89 sets, daily range): BP systolic 70–118; BP diastolic 42–64
--- NOTE | 2018-09-26 01:19 | NUR ---
REPOSITIONED FOR COMFORT. ORAL CARE PROVIDED. TOLERATED WELL.
--- NOTE | 2018-09-26 01:19 | NUR ---
REPOSITIONED FOR COMFORT. ORAL CARE PROVIDED.
--- NOTE | 2018-09-26 03:51 | NUR ---
REASSESSMENT COMPLETE. NO NEW CHANGES NOTED IN PT CONDITION. SAFETY MEASURES IN PLACE. CBIR.
[2018-09-26 05:12] LABS: BASOPHILS 0.1 % (0-2); EOSINOPHILS 0.5 % (0-7); HEMATOCRIT 27.9 % (42.0-54.0); HEMOGLOBIN 9.2 g/dL (13.5-17.5); IMMATURE GRANULOCYTES 0.4 % (0-5); LYMPHOCYTES 29.3 % (15-50); MCH 29.5 pg (26.0-34.0); MCV 89.4 fL (80.0-100.0); MEAN PLATELET VOLUME 11.3 fL (7.4-10.4); NEUTROPHILS 66.7 % (40-80); PLATELET COUNT 255 10x3/uL (130-400); RBC 3.12 10x6/uL (4.20-6.10); RDW 17.9 % (11.5-14.5); WBC 11.4 10x3/uL (4.8-10.8)
[2018-09-26 05:27] LABS: ANION GAP 14.4 mmol/L (8-16); CALCIUM 8.1 mg/dL (8.5-10.1)
[2018-09-26 05:58] LABS: CREATININE - SERUM 3.6 mg/dL (0.6-1.3)
[2018-09-26 06:04] LABS: POTASSIUM - SERUM 6.4 mmol/L (3.5-5.1)
--- NOTE | 2018-09-26 06:28 | NUR ---
TUBE FEED TURNED OFF. RESIDUAL 360.
--- NOTE | 2018-09-26 06:48 | NUR ---
CRITICAL POTASSIUM. Yeny CAMILO PHONED. RENAL CONSULTED.
--- NOTE | 2018-09-26 07:11 | NUR ---
PHONED DR. SMITH REGARDING RENAL CONSULT. ORDERS RECEIVED, VERIFIED, AND READ BACK. SEE MAR FOR DETAILS.
--- NOTE | 2018-09-26 08:17 | NUR ---
0700 VENT SETTINGS AT SIMV 12, TV 600, FIO2 50%, PEEP 5, PS 10, RR 15, SAT 93%. RIGHT UPPER PIC WITH PROPOFOL AT 10MCG/KG/MIN, LEVOPHED 5.33 MCG/MIN, D5 1/2 AT 50ML/HR AND FENTANYL 325 MCG/HOUR. SITE SATISFACTORY. ASSESSMENT COMPLETE
--- NOTE | 2018-09-26 08:48 | NUR ---
0800 NEW ORDER FOR MEDS NOTED. AMP D50, REGULAR INSULIN 10 UNITS IV, CALCIUM GLUCONATE IV ALL GIVEN
--- NOTE | 2018-09-26 08:51 | NUR ---
0876 DR YOUNGER ROUNDING, VENT CHANGES NOTED AC 18, FIO2 50% TV 600 PEEP 5 PS 0. INSTRUCTED BY MD TO PLACE OGT ON LIS 600 ML TF INITIALLY SUCTIIONED OUT
[2018-09-26 10:31] LABS: ANION GAP 17.1 mmol/L (8-16); CALCIUM 7.9 mg/dL (8.5-10.1); CARBON DIOXIDE 21.4 mmol/L (21.0-32.0); CREATININE - SERUM 4.2 mg/dL (0.6-1.3)
[2018-09-26 10:33] LABS: POTASSIUM - SERUM 6.5 mmol/L (3.5-5.1)
--- NOTE | 2018-09-26 10:37 | NUR ---
0822 DR YOUNGER INFORMED OF ABG RESULTS PH 7.148.
--- NOTE | 2018-09-26 10:39 | NUR ---
0957 BLOOD SPECIMEN DRAWN AND SENT TO LAB FOR BMP
--- NOTE | 2018-09-26 10:40 | NUR ---
1030 [address]U [address] FOR [address] SMITH TO RESULTS OF BMP WITH SERUM POTASSIUM INCREASED TO 6.5. NO NEW ORDERS NOTED
--- NOTE | 2018-09-26 10:50 | NUR ---
1394 SUSU RETURNED CALL SAYING DR SMITH WANTS TO START DIALYSIS ON PT AND SAID SHE WILL COME SPEAK TO SPOUSE. CONSULT FOR SURGERY
--- NOTE | 2018-09-26 13:00 | NUR ---
PATIENT SEDATED. PATIENT TURNED. DIALYSIS TRIALYSIS CATHETER PLACED. VSS. WILL CONTINUE TO MONITOR.
--- NOTE | 2018-09-26 15:00 | NUR ---
PATIENT SEDATED. VSS. REASSESSMENT COMPLETED. NO CHANGES NOTED. PATIENT ON LOW INT SUCTION. PATIENT TURNED. WILL CONTINUE TO MONITOR.
--- NOTE | 2018-09-26 17:00 | NUR ---
PATIENT SEDATED. DIALYSIS AT BEDSIDE. VSS. WILL CONTINUE TO MONITOR.
--- NOTE | 2018-09-26 17:41 | MORECARE ---
CASE MANAGEMENT DISCHARGE SUMMARY PATIENT: SYMONE SANTOS UNIT: [id number] ADM DATE: 09/14/18 AGE: 78 : 40 SEX: M ROOM/BED: D.2303 AUTHOR: MEY,DOC PHYSICIAN: REFERRING PHYSICIAN: JOE VASQUEZ MD DATE OF SERVICE: 09/26/18 Discharge Plan Patient Name: SYMONE SANTOS Facility: [facility]:[place] : 1940 Planned Disposition: Home Anticipated Discharge Date: 09/18/18 Discharge Date: Expected LOS: 4 Initial Reviewer: [email or web address] Initial Review Date: 09/14/2018 Generated: 09/26/18 6:40 pm Comments DCP- Discharge Planning Updated by [id number]: Fely Bear on 09/26/18 4:[address] CM spoke with patient regarding [facility] Acute Care. CM explained that because he hasn't been able to be weaned off vent then we are looking into rat exterminator care and possible trach / peg. Spouse verbalized understanding. CM explained that there is a facility in [facility] that would be the closest to her home. She would like to think it over and get back with CM in the morning. Patient has had to start on hemodialysis today. CM will continue to follow and assist as needed with discharge planning /needs. DCP- Discharge Planning Updated by [email or web address]: Fely Bear on 09/25/18 5:[address] CM received order for LTACH and was later notified that Dr. Benjamin requested to hold off on LtACH for now. CM will continue to follow and assist as needed with d/c planning/ needs. DCP- Discharge Planning Updated by [id number]: Fely Bear on 09/22/18 5:[address] CM spoke with patient's regarding potential placement / rehab. Spouse at this time isn't wanting to talk about any kind of placement. She stated that she doesn't drive and it would be best if he could have therapy at home. CM spoke with Dr. Caasrez he stated that at this time it is to early to think of LTACH placement. CM will continue to follow and assist as needed with discharge planning /needs DCP- Discharge Planning Updated by [email or web address]: Fely Bear on 09/20/18 5:[address] CM spoke with respiratory and plans for Bronch on and possible extubation the next day. Fariha states that they have been weaning down vent. May want to wait on LTACH eval. CM will continue to follow and assist as needed with discharge planning / needs. DCP- Discharge Planning Updated by [email or web address]: Ann Pretty on 09/14/18 3:[address] Patient Name: SYMONE SANTOS Admission Status: ER Accout number: [id number] Admission Date: 09-14-2018 : 1940 Admission Diagnosis: Attending: JOE VASQUEZ Current LOS: 1 Anticipated DC Date: 09-18-2018 Planned Disposition: Home Primary Insurance: [employer] CHOICE PPO MCR ADVANT Discharge Planning Comments: CM met with patient's granddaughter (Yusra Fine [phone]) in the room to complete initial dc planning assessment. Patient on the vent and unable to complete assessment. CM educated Yusra on the CM role and verbal consent given by Yusra to complete assessment. CM verified patient's address, phone number, and emergency contact phone numbers. 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 At discharge Yusra is hopeful the patient will be able to return home and feels this is a safe discharge. CM discussed availability of home health, rehab services, and medical equipment. Yusra denied known discharge needs at this time. She reports patient's grandson Remington or another family member will transport him home at time of discharge. CM will continue to follow and will assist as needed with dc plans/needs. Pan Puller: Ann Pretty RN, [facility] DCPIA - Discharge Planning Initial Assessment Updated by [email or web address]: Ann Pretty on 09/14/18 3:56 pm * Is the patient Alert and Oriented? No * PCP Dr. Louis Tejada * Pharmacy [facility] in [place] * Preadmission Environment Home with Family * ADLs Independent * Equipment None * List name and contact numbers for known caregivers / representatives who currently or will assist patient after discharge: Angela Santos - Spouse - [phone] Yusra justin-daughter - [phone] * Verbal permission to speak to the caregivers and representatives has been obtained from the patient. Yes * Community resources currently utilized None * Additional services required to return to the preadmission environment? No * Can the patient safely return to the preadmission environment? Yes * Has this patient been hospitalized within the prior 30 days at any hospital? No Last DP export: 09/25/18 5:20 p Patient Name: SYMONE SANTOS Page [phone] at 1741 All edits/amendments must be made on the electronic document DICTATION DATE: 09/26/181739 PACKING AND STAMPING MACHINE OPERATOR: TALON 09/26/181739 RPT#: [id number] DC DATE: STATUS: ADM IN [facility] [address] [place] [address] END OF REPORT
--- NOTE | 2018-09-26 19:05 | NUR ---
BEDSIDE SHIFT REPORT GIVEN BY DEPARTING RN. PT LAYING IN BED SEDATED ON VENT WITH RESTRAINTS ON. ASSESSMENT COMPLETE. SEE FS FOR DETAILS. ADRIAN PICC LINE NOTED AND INFUSING MD ORDERED MEDS. F/C DRAINING TO GRAVITY. OGT TO DALLIN. MAKEDA. NO SS OF DISTRESS NOTED. SAFETY MEASURES IN PLACE. CBIR.
--- NOTE | 2018-09-26 20:00 | NUR ---
FAMILY AT BEDSIDE. ALL QUESTIONS ANSWERED.
--- NOTE | 2018-09-26 20:30 | NUR ---
FEMSTOP PRESSURE REDUCED TO 68, PEDAL PULSES +2
--- NOTE | 2018-09-26 20:45 | NUR ---
FEMSTOP PRESSURE REDUCED TO 60, PEDAL PULSES GOOD, NO BLEEDING NOTED
--- NOTE | 2018-09-26 21:00 | NUR ---
FEMSTOP PRESSURE REDUCED TO 50, PEDAL PULSES +2, NO BLEEDING NOTED, PT ALERT
--- NOTE | 2018-09-26 21:17 | NUR ---
REPOSITIONED FOR COMFORT. ORAL CARE PROVIDED. TOELRATED WELL.
--- NOTE | 2018-09-26 21:20 | NUR ---
FEMSTOP PRESSURE REDUCED TO 40, PEDAL PULSES +2, SITE APPEARS GOOD WITH NO BLEEDING
--- NOTE | 2018-09-26 21:45 | NUR ---
FEMSTOP PRESSURE REDUCED TO 30, PEDAL PULSES +2, NO BLEEDING NOTED
--- NOTE | 2018-09-26 22:20 | NUR ---
FEMSTOP PRESSURE REDUCED TO 10, PULSES GOOD, PT ALERT WITH NO C/O PAIN
--- NOTE | 2018-09-26 22:35 | NUR ---
FEMSTOP D/C'D, PEDAL PULSES +2, NO BLEEDING NOTED, PT RESTING QUIETLY
--- NOTE | 2018-09-26 23:21 | NUR ---
REASSESSMENT COMPLETE. NO NEW CHANGES IN PT CONDITION. REPOSITIONED. ORAL CARE PROVIDED.
[2018-09-27] VITALS (62 sets, daily range): BP systolic 90–146; BP diastolic 46–90
--- NOTE | 2018-09-27 03:42 | NUR ---
REASSESSMENT COMPLETE. NO NEW CHANGES NOTED IN PT CONDITION. REPOSITIONED. ORAL CARE PROVIDED. VSS. SAFETY MEASURES IN PLACE. CBIR.
[2018-09-27 05:15] LABS: HEMATOCRIT 24.1 % (42.0-54.0); HEMOGLOBIN 8.1 g/dL (13.5-17.5); MCH 29.3 pg (26.0-34.0); MCHC 33.6 g/dL (31.0-37.0); MEAN PLATELET VOLUME 10.4 fL (7.4-10.4); PLATELET COUNT 230 10x3/uL (130-400); RBC 2.76 10x6/uL (4.20-6.10); RDW 17.1 % (11.5-14.5); WBC 9.4 10x3/uL (4.8-10.8)
[2018-09-27 05:25] LABS: MCV 87.3 fL (80.0-100.0)
[2018-09-27 05:27] LABS: ALBUMIN 2.5 g/dL (3.4-5.0); ANION GAP 12.4 mmol/L (8-16); CALCIUM 7.6 mg/dL (8.5-10.1); CARBON DIOXIDE 26.4 mmol/L (21.0-32.0); CREATININE - SERUM 3.7 mg/dL (0.6-1.3); PROTEIN - SERUM 5.8 g/dL (6.4-8.2)
[2018-09-27 05:35] LABS: POTASSIUM - SERUM 4.8 mmol/L (3.5-5.1)
[2018-09-27 06:28] LABS: EOSINOPHILS 2 % (0-7); LYMPHOCYTES 49 % (15-50); NEUTROPHILS 48 % (40-80); PLATELET ESTIMATE NORMAL
[2018-09-27 08:17] LABS: % SATURATION 45 % (15-55); IRON 34 ug/dl (35-150); TOTAL IRON BIND CAPACITY 75 ug/dl (260-445)
[2018-09-27 08:26] LABS: UNSAT IRON BIND CAPACITY 41 ug/dl (150-375)
--- NOTE | 2018-09-27 08:49 | NUR ---
FENTANYL COMMERCIAL DECORATOR TURNED DOWN TO 50MCG/HR PER DR. YOUNGER'S ORDERS.
--- NOTE | 2018-09-27 09:00 | NUR ---
Nutrition follow-up: Pt remains intubated, sedated; propofol @ 6 ml/hr Nepro TF is off at this time due to very high residuals - over 600 ml. Pt started dialysis 09/26 Labs reviewed Wt: 277# Recommend starting TF @ 10 ml/hr with with gradual increase to goal rate of 50 ml/hr. Now that dialysis started, as medically feasible will need to increase TF to new goal rate of 60 ml/hr RDN following.
--- NOTE | 2018-09-27 09:28 | NUR ---
CONSENT SIGNED FOR BRONCHOSPY AND PLACED IN CHART.
--- NOTE | 2018-09-27 11:00 | NUR ---
DR. YOUNGER AT BEDSIDE, BRONCH PERFORMED, PT TOLERATED WELL
[2018-09-27 11:10] LABS: FUNGUS MYCOLOGY CULTURE Preliminary report (())
[2018-09-27 11:10] LABS: HEPATITIS C ANTIBODY <0.1 S/CO RAT (0.0-0.9)
--- NOTE | 2018-09-27 11:15 | NUR ---
DR. SMITH AT BEDSIDE, UPDATE GIVEN TO FAMILY
[2018-09-27 15:09] LABS: FUNGUS STAIN Final report (())
--- NOTE | 2018-09-27 15:15 | NUR ---
REASSESSMENT COMPLETE, NO CHANGES NOTED, PT REPOSITIONED FOR COMFORT, ORAL CARE PROVIDED
--- NOTE | 2018-09-27 19:30 | NUR ---
PT SEDATED , DIALYSIS IN PROGRESS, ETT PATENT TO VENT, R PICC INTACT WITH FLUIDS INFUSING, NO DISTRESS NOTED
--- NOTE | 2018-09-27 21:30 | NUR ---
NO CHANGE IN STATUS, REMAINS SEDATED, ETT PATENT TO VENT
--- NOTE | 2018-09-27 23:30 | NUR ---
PT REMAINS SEDATED, BATHED , BM X1, NO CHANGES
[2018-09-28] VITALS (25 sets, daily range): BP systolic 100–133; BP diastolic 54–76
--- NOTE | 2018-09-28 01:30 | NUR ---
REPOSITIONED FOR COMFORT, ORAL CARE PERFORMED, REMAINS SEDATED ON VENT, ETT IN PLACE
--- NOTE | 2018-09-28 03:30 | NUR ---
PT REMAINS SEDATED, ETT PATENT TO VENT, OGT INTACT TO LIS, NO DISTRESS NOTED
[2018-09-28 04:37] LABS: BASOPHILS 0.1 % (0-2); EOSINOPHILS 1.3 % (0-7); HEMATOCRIT 23.3 % (42.0-54.0); HEMOGLOBIN 8.1 g/dL (13.5-17.5); IMMATURE GRANULOCYTES 0.7 % (0-5); LYMPHOCYTES 61.1 % (15-50); MCH 29.1 pg (26.0-34.0); MCHC 34.8 g/dL (31.0-37.0); MEAN PLATELET VOLUME 9.9 fL (7.4-10.4); MONOCYTES 3.8 % (2-11); PLATELET COUNT 235 10x3/uL (130-400); RBC 2.78 10x6/uL (4.20-6.10); RDW 16.6 % (11.5-14.5); WBC 9.7 10x3/uL (4.8-10.8)
[2018-09-28 04:51] LABS: MCV 83.8 fL (80.0-100.0)
[2018-09-28 05:04] LABS: ALBUMIN 2.4 g/dL (3.4-5.0); ANION GAP 13.8 mmol/L (8-16); BILIRUBIN - TOTAL 3.39 mg/dL (0.2-1.3); CALCIUM 7.6 mg/dL (8.5-10.1); CARBON DIOXIDE 26.4 mmol/L (21.0-32.0); POTASSIUM - SERUM 4.2 mmol/L (3.5-5.1); PROTEIN - SERUM 5.8 g/dL (6.4-8.2)
--- NOTE | 2018-09-28 05:46 | NUR ---
AT BEDSIDE, PT SEDATED, MOVES LEGS AT TIMES, STATES HE HAS RESTLESS LEGS AT HOME
--- NOTE | 2018-09-28 07:00 | NUR ---
SHIFT ASSESSMENT COMPLETED. PT CARE ASSUMED. MONITORS ON AND WORKING, VITALS STABLE. VENT SETTINGS NOTED. PT TURNED AND REPOSITIONED FOR COMFORT. WILL CONTINUE TO OBSERVE.
--- NOTE | 2018-09-28 09:00 | NUR ---
AT BEDSIDE, MONITORS ON AND WORKING, WILL CONTINUE TO OBSERVE.
--- NOTE | 2018-09-28 11:00 | NUR ---
HD NURSE AT BEDSIDE. DR DAVIS AT BEDSIDE. WILL RE START NEPRO TF AT 10ML/HR, INCREASING BY 10 ML Q12 LONG RESIDUAL IS LESS THAN 200. SEE FLOW SHEET FOR FURTHER DETIALS. WILL CONTINUE TO OBSERVE.
--- NOTE | 2018-09-28 13:00 | NUR ---
REPORT RECIEVED ON PT. NO ACUTE DISTRESS NOTED. VSS. FAMILY AT BEDSIDE. WILL CONTINUE PLAN OF CARE.
--- NOTE | 2018-09-28 14:34 | MORECARE ---
CASE MANAGEMENT DISCHARGE SUMMARY PATIENT: SYMONE SANTOS UNIT: [id number] ADM DATE: 09/14/18 AGE: 78 : 40 SEX: M ROOM/BED: D.2303 AUTHOR: MEY,DOC PHYSICIAN: REFERRING PHYSICIAN: JOE VASQUEZ MD DATE OF SERVICE: 09/28/18 Discharge Plan Patient Name: SYMONE SANTOS Facility: [facility]:[place] : 1940 Planned Disposition: Home Anticipated Discharge Date: 09/18/18 Discharge Date: Expected LOS: 4 Initial Reviewer: [email or web address] Initial Review Date: 09/14/2018 Generated: 09/28/18 3:34 pm DCP- Discharge Planning Updated by [email or web address]: Fely Bear on 09/26/18 4:[address] CM spoke with patient regarding Gas Analyst Acute Care. CM explained that because he hasn't been able to be weaned off vent then we are looking into long term care social worker care and possible trach / peg. Spouse verbalized understanding. CM explained that there is a facility in [facility] that would be the closest to her home. She would like to think it over and get back with CM in the morning. Patient has had to start on hemodialysis today. CM will continue to follow and assist as needed with discharge planning /needs. DCP- Discharge Planning Updated by [email or web address]: Fely Bear on 09/25/18 5:[address] CM received order for LTACH and was later notified that Dr. Benjamin requested to hold off on LtACH for now. CM will continue to follow and assist as needed with d/c planning/ needs. DCP- Discharge Planning Updated by [email or web address]: Fely Bear on 09/22/18 5:[address] CM spoke with patient's regarding potential placement / rehab. Spouse at this time isn't wanting to talk about any kind of placement. She stated that she doesn't drive and it would be best if he could have therapy at home. CM spoke with Dr. Casarez he stated that at this time it is to early to think of LTACH placement. CM will continue to follow and assist as needed with discharge planning /needs DCP- Discharge Planning Updated by [id number]: Fely Bear on 09/20/18 5:[address] CM spoke with respiratory and plans for Bronch on and possible extubation the next day. Fariha states that they have been weaning down vent. May want to wait on LTACH eval. CM will continue to follow and assist as needed with discharge planning / needs. DCP- Discharge Planning Updated by [id number]: Ann Pretty on 09/14/18 3:[address] Patient Name: SYMONE SANTOS Admission Status: ER Accout number: [id number] Admission Date: 09-14-2018 : 1940 Admission Diagnosis: Attending: JOE VASQUEZ Current LOS: 1 Anticipated DC Date: 09-18-2018 Planned Disposition: Home Primary Insurance: [employer] PPO [employer] ADVANT Discharge Planning Comments: CM met with patient's granddaughter (Yusra Fine [phone]) in the room to complete initial dc planning assessment. Patient on the vent and unable to complete assessment. CM educated Yusra on the CM role and verbal consent given by Yusra to complete assessment. CM verified patient's address, phone number, and emergency contact phone numbers. 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 At discharge Yusra is hopeful the patient will be able to return home and feels this is a safe discharge. CM discussed availability of home health, rehab services, and medical equipment. Yusra denied known discharge needs at this time. She reports patient's grandson Remington or another family member will transport him home at time of discharge. CM will continue to follow and will assist as needed with dc plans/needs. Corporate Officer: Ann Pretty RN, [facility] DCPIA - Discharge Planning Initial Assessment Updated by [email or web address]: Ann Pretty on 09/14/18 3:56 pm * Is the patient Alert and Oriented? No * PCP Dr. Louis Tejada * Pharmacy [facility] in [place] * Preadmission Environment Home with Family * ADLs Independent * Equipment None * List name and contact numbers for known caregivers / representatives who currently or will assist patient after discharge: Angela Santos - Spouse - [phone] Yusra justin-daughter - [phone] * Verbal permission to speak to the caregivers and representatives has been obtained from the patient. Yes * Community resources currently utilized None * Additional services required to return to the preadmission environment? No * Can the patient safely return to the preadmission environment? Yes * Has this patient been hospitalized within the prior 30 days at any hospital? No External Providers External Provider: Mary Castle [facility] Next Contact Date: Service Request Date: Service Type: Resolution: Reviewer: Comments: Last DP export: 09/26/18 4:41 p Patient Name: SYMONE SANTOS Page [id number] at 1434 All edits/amendments must be made on the electronic document DICTATION DATE: 09/28/181433 GRANULATOR OPERATOR: TALON 09/28/181433 RPT#: [id number] DC DATE: STATUS: ADM IN [facility] [address] [place] [address] END OF REPORT
--- NOTE | 2018-09-28 14:45 | NUR ---
CHG BATH PROVIDED AT THIS TIME. INCONTINENT BOWEL MOVEMENT NOTED, LARGE, LIQUID BROWN. TOTAL LINEN CHANGE PROVIDED WELL DURING BED BATH. LLOYD CARE PROVIDED. GROIN AREAS NOTED REDENNED/EXCORIATED; CALMOSEPTINE APPLIED TO AREAS. ALSO DRESSING CHANGED TO RT IJ TRIALYSIS LINE, OLD DRESSING WAS A TAGEDERM, REMOVED AND DRESSING APPLIED PER HOSPITAL PROTOCOL. NO ACUTE DISTRESS NOTED. VSS. OGT IN PLACE, VERIFIED VIA AUSCULTATION, OGT FEEDS STARTED PER ORDERS. WILL CONTINUE PLAN OF CARE.
--- NOTE | 2018-09-28 17:21 | NUR ---
PATIENT SEDATED. VSS. PATIENT TURNED. PATIENT SUCTIONED. WILL CONTINUE TO MONITOR
--- NOTE | 2018-09-28 19:30 | NUR ---
ASSESSMENT COMPLETED, PT SEDATED, ETT INTACT TO VENT, OGT INTACT WITH NEPRO @ 10CC/HR, R IJ TRIALYSIS INTACT, R PICC INTACT WITH GTT'S INFUSING, LLOYD PATENT TO BSD WITH DARK COFFEE COLORED URINE
--- NOTE | 2018-09-28 19:52 | MORECARE ---
CASE MANAGEMENT DISCHARGE SUMMARY PATIENT: SYMONE SANTOS UNIT: [id number] ADM DATE: 09/14/18 AGE: 78 : 40 SEX: M ROOM/BED: D.2303 AUTHOR: MEY,DOC PHYSICIAN: REFERRING PHYSICIAN: JOE VASQUEZ MD DATE OF SERVICE: 09/28/18 Discharge Plan Patient Name: SYMONE SANTOS Facility: [facility]:[place] : 1940 Planned Disposition: Home Anticipated Discharge Date: 09/18/18 Discharge Date: Expected LOS: 4 Initial Reviewer: [email or web address] Initial Review Date: 09/14/2018 Generated: 09/28/18 8:51 pm Comments DCP- Discharge Planning Updated by [id number]: Fely Bear on 09/28/18 6:[address] LATE ENTRY 09/27/18 KELLY spoke with patients Angeal and she would like [facility] in . 09/28/18 KELLY called and faxed records to Starr at [facility]. CM had to clarify if they would accept patient with trialysis cath or if he needed to have hemosplit. Trialysis is alright for them. Starr called back and stated that [employer] requires patient to have trach before going to LTACH. KELLY notified nursing staff of this. Starr stated she would continue to work on auth. CM will continue to follow and assist in discharge planning / needs. DCP- Discharge Planning Updated by [id number]: Fely Bear on 09/26/18 4:[address] CM spoke with patient regarding Prison Acute Care. CM explained that because he hasn't been able to be weaned off vent then we are looking into terminal operations supervisor care and possible trach / peg. Spouse verbalized understanding. KELLY explained that there is a facility in [facility] that would be the closest to her home. She would like to think it over and get back with CM in the morning. Patient has had to start on hemodialysis today. CM will continue to follow and assist as needed with discharge planning /needs. DCP- Discharge Planning Updated by [id number]: Fely Bear on 09/25/18 5:[address] CM received order for LTACH and was later notified that Dr. Benjamin requested to hold off on LtACH for now. CM will continue to follow and assist as needed with d/c planning/ needs. DCP- Discharge Planning Updated by [email or web address]: Fely Bear on 09/22/18 5:[address] CM spoke with patient's regarding potential placement / rehab. Spouse at this time isn't wanting to talk about any kind of placement. She stated that she doesn't drive and it would be best if he could have therapy at home. CM spoke with Dr. Casarez he stated that at this time it is to early to think of LTACH placement. CM will continue to follow and assist as needed with discharge planning /needs DCP- Discharge Planning Updated by [email or web address]: Fely Bear on 09/20/18 5:[address] CM spoke with respiratory and plans for Bronch on and possible extubation the next day. Fariha states that they have been weaning down vent. May want to wait on LTACH eval. CM will continue to follow and assist as needed with discharge planning / needs. DCP- Discharge Planning Updated by [email or web address]: Ann Pretty on 09/14/18 3:[address] Patient Name: SYMONE SANTOS Admission Status: ER Accout number: [id number] Admission Date: 09-14-2018 : 1940 Admission Diagnosis: Attending: JOE VASQUEZ Current LOS: 1 Anticipated DC Date: 09-18-2018 Planned Disposition: Home Primary Insurance: [employer] CHOICE PPO [facility] ADVANT Discharge Planning Comments: CM met with patient's granddaughter (Yusra Fine [phone]) in the room to complete initial dc planning assessment. Patient on the vent and unable to complete assessment. CM educated Yusra on the CM role and verbal consent given by Yusra to complete assessment. CM verified patient's address, phone number, and emergency contact phone numbers. 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 At discharge Yusra is hopeful the patient will be able to return home and feels this is a safe discharge. CM discussed availability of home health, rehab services, and medical equipment. Yusra denied known discharge needs at this time. She reports patient's grandson Remington or another family member will transport him home at time of discharge. CM will continue to follow and will assist as needed with dc plans/needs. Pigment Pusher: Ann Pretty RN, [facility] DCPIA - Discharge Planning Initial Assessment Updated by [email or web address]: Ann Pretty on 09/14/18 3:56 pm * Is the patient Alert and Oriented? No * PCP Dr. Louis Tejada * Pharmacy [facility] in [place] * Preadmission Environment Home with Family * ADLs Independent * Equipment None * List name and contact numbers for known caregivers / representatives who currently or will assist patient after discharge: Angela Santos - Spouse - [phone] Yusra Fine - grand-daughter - [phone] * Verbal permission to speak to the caregivers and representatives has been obtained from the patient. Yes * Community resources currently utilized None * Additional services required to return to the preadmission environment? No * Can the patient safely return to the preadmission environment? Yes * Has this patient been hospitalized within the prior 30 days at any hospital? No Coverage Notice Reviewer: [id number] Iona Bear Notice Issued Date-Time: 09/27/2018 13:30 Notice Type: Patient Choice Letter Notice Delivered To: Family Member Relationship to Patient: Spouse Clinical Evaluator Name: Angela Santos Delivery Method: HAND - Hand Delivered Hilaria Days: Prior Verbal Notification: Recipient Understood Notice: Yes Recipient Signature: Yes Med Rec Note Co-signed by Attending: Coverage Notice Comment: LTACH ECTOR Last DP export: 09/28/18 1:35 p Patient Name: SYMONE SANTOS Page 76824 at 1952 All edits/amendments must be made on the electronic document DICTATION DATE: 09/28/181950 SITE MONITOR: TALON 09/28/181950 RPT#: [id number] DC DATE: STATUS: ADM IN [facility] [address] [place] [address] END OF REPORT
[2018-09-28 21:06] LABS: ACID FAST SMEAR Negative (()); AFB SPECIMEN PROCESSING Concentration (())
--- NOTE | 2018-09-28 21:30 | NUR ---
REMAINS SEDATED, VITALS STABLE
--- NOTE | 2018-09-28 22:57 | NUR ---
Dialysis Coordinator: Patient started on HD this admision. JOURDAN @ this time. No orders regarding OPHD needs. Patient being worked up for LTACH placement w/ Aroldo Orellana @ this time. No further needs from Dialysis Coordinator at this time. MELANIE BIRD.
--- NOTE | 2018-09-28 23:30 | NUR ---
NO CHANGE IN STATUS, RESTING QUIETLY
[2018-09-29] VITALS (28 sets, daily range): BP systolic 77–125; BP diastolic 47–80
--- NOTE | 2018-09-29 | NUR ---
TUBE FEED TURNED OFF, PT NPO FOR AM PROCEDURE
--- NOTE | 2018-09-29 02:10 | NUR ---
PT BATHED, REMAINS SEDATED ON VENT, NO DISTRESS
--- NOTE | 2018-09-29 04:00 | NUR ---
AM LAB DRAWN FROM RIGHT TRIALYSIS CATH NURSE PORT, PT SEDATED, NO DISTRESS REMAINS NPO
[2018-09-29 04:29] LABS: MCHC 35.1 g/dL (31.0-37.0); MCV 82.8 fL (80.0-100.0); MEAN PLATELET VOLUME 10.3 fL (7.4-10.4); PLATELET COUNT 238 10x3/uL (130-400); WBC 11.4 10x3/uL (4.8-10.8)
[2018-09-29 04:34] LABS: HEMATOCRIT 28.8 % (42.0-54.0); HEMOGLOBIN 10.1 g/dL (13.5-17.5); RBC 3.48 10x6/uL (4.20-6.10)
[2018-09-29 04:41] LABS: INR 1.13 (0.85-1.17)
[2018-09-29 04:46] LABS: ALBUMIN 2.3 g/dL (3.4-5.0); ANION GAP 14.4 mmol/L (8-16); BILIRUBIN - TOTAL 2.74 mg/dL (0.2-1.3); CALCIUM 7.5 mg/dL (8.5-10.1); CARBON DIOXIDE 26.5 mmol/L (21.0-32.0); CREATININE - SERUM 4.1 mg/dL (0.6-1.3); POTASSIUM - SERUM 3.9 mmol/L (3.5-5.1)
[2018-09-29 04:57] LABS: EOSINOPHILS 2 % (0-7); LYMPHOCYTES 61 % (15-50); MONOCYTES 5 % (2-11); NEUTROPHILS 32 % (40-80); PLATELET ESTIMATE NORMAL
--- NOTE | 2018-09-29 06:03 | NUR ---
RESTING QUIETLY, ETT PATENT TO VENT, NO URINE OUTPUT THIS SHIFT
--- NOTE | 2018-09-29 07:22 | NUR ---
PATIENT SEDATED. REPORT RECIEVED FORM JULIANA. VSS. AFEBRILE. WILL CONTINUE TO MONITOR
--- NOTE | 2018-09-29 08:54 | NUR ---
Nutrition follow-up: Pt NPO for procedure this am. Nepro was restarted 09/28 @ 10 ml/hr to increase 10 ml to goal rate of 50 ml/hr Labs reviewed WT: 271# +BM RDN following.
--- NOTE | 2018-09-29 09:00 | NUR ---
DR YOUNGER AT BEDSIDE. UPDATE GIVEN.
--- NOTE | 2018-09-29 10:30 | NUR ---
DR STEARNS AT BEDSIDE. UPDAPTE GIVEN.
--- NOTE | 2018-09-29 11:15 | NUR ---
PATIENT SEDATED. DR JACKSON AT BEDSIDE.
[2018-09-29 12:09] LABS: FUNGUS STAIN Final report (())
--- NOTE | 2018-09-29 12:15 | OP ---
PATIENT NAME: SYMONE SANTOS MEDICAL RECORD: [id number] :[birth year] LOCATION:.[facility] D.2303 ADMISSION DATE:09/14/18 SURGEON: SIL BYNUM MD DATE OF OPERATION: 09/26/2018 PREOPERATIVE DIAGNOSES: 1. Acute renal failure with hyperkalemia. 2. Acute respiratory failure, on the ventilator. 3. Pneumonia. 4. Sepsis. POSTOPERATIVE DIAGNOSES: 1. Acute renal failure with hyperkalemia. 2. Acute respiratory failure, on the ventilator. 3. Pneumonia. 4. Sepsis. PROCEDURE: Right IJ 12.5-cm Trialysis catheter placement. SURGEON: Sil Bynum MD REPORT OF PROCEDURE: The patient's right neck was prepped and draped in sterile fashion. Using ultrasound guidance, a needle was used to cannulate the right internal jugular vein and a guidewire was advanced with ease. A dilator was then placed over the wire followed by the Trialysis catheter. The catheter aspirated nonpulsatile dark blood and flushed easily in all 3 ports. This was sutured into place with 3-0 silk ties and dressed appropriately. COMPLICATIONS: None. CONDITION: Critical. ANESTHESIA: General endotracheal. BLOOD LOSS: Minimal. TRANSINT:[id number] Voice Confirmation ID: [id number] DOCUMENT ID: [id number] SIL BYNUM MD at 1215 CC: [id number] DICTATION DATE: 09/26/18 1443 SWITCHBOARD RECEPTIONIST: 09/26/18 1601 ADM IN [place] [id number] [place] [address]
--- NOTE | 2018-09-29 13:00 | NUR ---
PATIENT SEDATED. SIDE RAILS X2. PEG TUBE AND TRACH STABLE. WILL CONTINUE TO MONITOR
--- NOTE | 2018-09-29 15:30 | NUR ---
patient sedated. dialysis at bedside. vss. will continue to monitor.
--- NOTE | 2018-09-29 17:00 | NUR ---
CHG BATH AND COMPLETE LINEN CHANGE DONE AT THIS TIME.
--- NOTE | 2018-09-29 19:30 | NUR ---
RECEIVED CARE OF PT, ASSESSMENT PER FLOWSHEET. PT WITHDRAWS FROM PAINFUL STIMULI, EYES ARE OPEN SPONTANEOUSLY, HR SR ON CM, PPP, LLOYD CATH PATENT, ON VENT AT 50% FIO2 VIA TRACH, IV DRIPS PER FLOWSHEET. POSITIONED FOR COMFORT, ORAL CARE PROVIDED, WILL MONITOR.
--- NOTE | 2018-09-29 21:20 | NUR ---
PT DAUGHTER IN FOR VISITATION, DENIES ANY NEEDS AT THIS TIME, BLANKETS AND PILLOW PROVIDED PER REQUEST.
--- NOTE | 2018-09-29 23:15 | NUR ---
REASSESSMENT PER FLOWSHEET, NO ACUTE CHANGES NOTED AT THIS TIME, VSS.
[2018-09-30] VITALS (30 sets, daily range): BP systolic 83–131; BP diastolic 50–74
--- NOTE | 2018-09-30 01:20 | NUR ---
HR SR ON CM, PT RESTING IN NO APPARENT DISTRESS, VSS.
--- NOTE | 2018-09-30 03:00 | NUR ---
REASSESSMENT PER FLOWSHEET, NO ACUTE CHANGES NOTED AT THIS TIME, VSS.
[2018-09-30 05:35] LABS: BASOPHILS 0.2 % (0-2); EOSINOPHILS 2.6 % (0-7); HEMATOCRIT 28.7 % (42.0-54.0); HEMOGLOBIN 9.8 g/dL (13.5-17.5); IMMATURE GRANULOCYTES 1.7 % (0-5); LYMPHOCYTES 59.9 % (15-50); MCH 28.6 pg (26.0-34.0); MCHC 34.1 g/dL (31.0-37.0); MCV 83.7 fL (80.0-100.0); MONOCYTES 3.6 % (2-11); PLATELET COUNT 219 10x3/uL (130-400); RBC 3.43 10x6/uL (4.20-6.10); WBC 9.6 10x3/uL (4.8-10.8)
--- NOTE | 2018-09-30 05:41 | NUR ---
NO VISITORS AT THIS TIME, VSS, CONT POC.
[2018-09-30 05:57] LABS: ALBUMIN 2.1 g/dL (3.4-5.0); ANION GAP 14.6 mmol/L (8-16); BILIRUBIN - TOTAL 1.74 mg/dL (0.2-1.3); CALCIUM 7.3 mg/dL (8.5-10.1); CARBON DIOXIDE 25.6 mmol/L (21.0-32.0); CREATININE - SERUM 4.6 mg/dL (0.6-1.3); POTASSIUM - SERUM 4.2 mmol/L (3.5-5.1); PROTEIN - SERUM 5.7 g/dL (6.4-8.2)
--- NOTE | 2018-09-30 08:22 | NUR ---
LYING IN BED ON VENT VIA TRACH AT THIS TIME. NO ACUTES DISTRESS NOTED. VSS. CALL LIGHT IN REACH. FRESH TRACH PROTOCOL IN EFFECT. WILL CONTINUE PLAN OF CARE.
--- NOTE | 2018-09-30 08:26 | NUR ---
PER DR SARGENT, HOLD LOVENOX THIS AM SINCE PT COUGHING UP BLOOD CLOTS - PEG/TRACH PLACED YESTERDAY.
--- NOTE | 2018-09-30 09:21 | NUR ---
CHG BATH GIVEN AT THIS TIME. TOTAL LINEN CHANGE ALSO PROVIDED. INCONTINENT BOWEL MOVEMENT NOTED, LARGE LIQUID BROWN, NO ACUTE DISTRESS NOTED. ORAL CARE PROVIDED. NO ACUTE DISTRESS NOTED. WILL CONTINUE PLAN OF CARE.
--- NOTE | 2018-09-30 10:40 | NUR ---
LYING IN BED AT THIS TIME ON VENT VIA TRACH. NO ACUTE DISTRESS NOTED. DIALYSIS IN ROOM AT THIS TIME. WILL CONTINUE PLAN OF CARE.
[2018-09-30 11:03] LABS: ANION GAP 16.4 mmol/L (8-16); CALCIUM 7.5 mg/dL (8.5-10.1); CARBON DIOXIDE 24.7 mmol/L (21.0-32.0); POTASSIUM - SERUM 4.1 mmol/L (3.5-5.1)
--- NOTE | 2018-09-30 11:25 | NUR ---
WILL HOLD ANTIBIOTICS UNTIL DIALYSIS COMPLETE.
--- NOTE | 2018-09-30 13:21 | NUR ---
TUBE FEEDS STARTED AT THSI THIS TIME PER PHYSICIAN ORDERS. NEPHRO STARTED AT 10ML/HR. ALSO AT THIS TIME NOTED AFTER DIALYSIS COMPLETE PTS SBP TRENDING 80S, LEVOPHED STARTED, SEE IV FLOWSHEET. WILL CONTINUE PLAN OF CARE.
--- NOTE | 2018-09-30 14:52 | NUR ---
SPOKE WITH PTS AT THIS TIME. UPDATES PROVIDED. NO ACUTE DISTRESS NOTED. WILL CONTINUE PLAN OF CARE.
--- NOTE | 2018-09-30 16:06 | NUR ---
NO ACUTE DISTRESS NOTED.NO CHANGE. PT TURNED Q2H. ORAL CARE PROVIDED Q2H. VSS. WILL CONTINUE PLAN OF CARE.
--- NOTE | 2018-09-30 18:26 | NUR ---
SMALL INCONTINENT BOWEL MOVEMENT NOTED AT THIS TIME. NO ACUTE DISTRESS NOTED. TOTAL LINEN CHANGE PROVIDED AND LLOYD CARE/KOREY CARE PROVIDED.NO ACUTE DISTRESS NOTED. VSS. WILL CONTINUE PLAN OF CARE.
--- NOTE | 2018-09-30 19:00 | NUR ---
ASSESSMENT DONE SEE FLOW SHEET VSS NO SIGNS OF ACUTE DISTRESS NOTED WILL CONTINUE TO MONITOR.
--- NOTE | 2018-09-30 23:00 | NUR ---
2100 MEDS GIVEN PER G TUBE. VSS. 2300 REASSESSMENT DONE SEE FLOW SHEET. VSS.
[2018-10-01] VITALS (24 sets, daily range): BP systolic 88–125; BP diastolic 49–69
--- NOTE | 2018-10-01 01:00 | NUR ---
ROOM FREED OF CLUTTER IV LINES CHANGED. VSS WILL CONTINUE TO MONITOR.
--- NOTE | 2018-10-01 03:00 | NUR ---
REASSESSMENT DONE SEE FLOW SHEET.
[2018-10-01 04:38] LABS: BASOPHILS 0.2 % (0-2); EOSINOPHILS 2.6 % (0-7); HEMATOCRIT 29.7 % (42.0-54.0); HEMOGLOBIN 10.2 g/dL (13.5-17.5); IMMATURE GRANULOCYTES 2.8 % (0-5); LYMPHOCYTES 62.3 % (15-50); MCHC 34.3 g/dL (31.0-37.0); MCV 84.4 fL (80.0-100.0); MEAN PLATELET VOLUME 9.9 fL (7.4-10.4); MONOCYTES 3.8 % (2-11); NEUTROPHILS 28.3 % (40-80); PLATELET COUNT 219 10x3/uL (130-400); RBC 3.52 10x6/uL (4.20-6.10); RDW 17.4 % (11.5-14.5); WBC 11.3 10x3/uL (4.8-10.8)
[2018-10-01 04:51] LABS: ALBUMIN 2.1 g/dL (3.4-5.0); ANION GAP 14.3 mmol/L (8-16); BILIRUBIN - TOTAL 1.45 mg/dL (0.2-1.3); CALCIUM 7.4 mg/dL (8.5-10.1); CARBON DIOXIDE 25.6 mmol/L (21.0-32.0); CREATININE - SERUM 4.6 mg/dL (0.6-1.3); POTASSIUM - SERUM 3.9 mmol/L (3.5-5.1); PROTEIN - SERUM 5.9 g/dL (6.4-8.2)
--- NOTE | 2018-10-01 05:00 | NUR ---
IO COLLECTED DAILY WEIGHT COLLECTED. VSS. CHG BATH. COMPLETE LINEN CHANGE.
--- NOTE | 2018-10-01 07:30 | NUR ---
LYING IN BED ON VENT VIA TRACH AT THIS TIME. NO ACUTE DISTRESS NOTED. PEG FEEDING RESIDUALS NOTED AT 5ML AND RATE INCRAESED AT THIS TIME FROM 30ML/HR TO 40ML/HR PER ORDERS. PT TURNED Q2H. ORAL CARE PROVIDED Q2H. VSS. WILL CONTINUE PLAN OF CARE.
--- NOTE | 2018-10-01 09:44 | NUR ---
LARGE INCONTINENT BOWEL MOVEMENT NOTED, LIQUID BROWN. CHG BATH GIVEN, TOTAL LINEN CHANGE PROVIDED. NO ACUTE DISTRESS NOTED. VSS. WILL CONTINUE PLAN OF CARE.
--- NOTE | 2018-10-01 11:02 | NUR ---
NO ACUTE DISTRESS NOTED. NO CHANGE. TURNED Q2H. ORAL CARE PROVIDED Q2H. WILL CNTOMIUE PLATUL OF CARE.
[2018-10-01 12:36] LABS: ANION GAP 16.6 mmol/L (8-16); CALCIUM 7.4 mg/dL (8.5-10.1); CARBON DIOXIDE 24.5 mmol/L (21.0-32.0); POTASSIUM - SERUM 4.1 mmol/L (3.5-5.1)
--- NOTE | 2018-10-01 13:31 | NUR ---
5ML RESIDUAL NOTED TO PEG. FEEDINGS INCREASED PER ORDERS, SEE TUBE FEEDINGS FLOWSHEET. NO ACUTE DISTRESS NOTED. WILL CONTINUE PLAN OF CAR.E
[2018-10-01 14:07] LABS: APPEARANCE TURBID (CLEAR); COLOR BLACK (YELLOW)
[2018-10-01 14:09] LABS: AMORPHOUS SEDIMENT >1+ /lpf (NONE SEEN); BACTERIA MANY /hpf (NONE SEEN); EPITHELIAL CELLS >50 /hpf (0-5); MUCUS >1+ /lpf (NONE SEEN); RED CELLS - URINE >50 /hpf (0-5); WHITE CELLS - URINE >50 /hpf (0-5)
[2018-10-01 14:10] LABS: GRANULAR CAST 0-5 /lpf (NONE SEEN); RED CELL CAST RARE /lpf (NONE SEEN)
--- NOTE | 2018-10-01 15:01 | NUR ---
AT BEDSIDE AT THIS TIME. NO ACUTE DISTRESS NOTED. NO CHANGE VSS. WILL CNOTINUE PLANO F CARE.
--- NOTE | 2018-10-01 17:00 | NUR ---
LARGE BOWEL MOVEMENT NOTED AT THIS TIME, LIQUID BROWN. TOTAL LINEN CHANGE PROVIDED. NO ACUTE DISTRESS NOTED. ORAL CARE PROVIDED. 5ML RESIDUAL NOTED TO PEG FEEDINGS. VSS. WILL CONTINUE PLAN OF CARE.
--- NOTE | 2018-10-01 19:00 | NUR ---
BEDSIDE REPORT AND SHIFT ASSESSMENT COMPLETE. 10 ML LLOYD FLUSH, UOP DARK AND CONCENTRATED. 15 ML RESIDUAL NOTED FROM G-TUBE, PEG SITE DRESSING CDI. VSS, NO DISTRESS NOTED AT THIS TIME. WILL CONTINUE TO MONITOR.
--- NOTE | 2018-10-01 21:00 | NUR ---
MEDS GIVEN PER MAR. VSS, NO DISTRESS NOTED. REPOSITIONED FOR COMFORT, WILL CONTINUE PLAN OF CARE.
--- NOTE | 2018-10-01 23:00 | NUR ---
REPOSITIONING AND ORAL CARE COMPLETE. VSS, NO DISTRESS NOTED. WILL CONTINUE TO MONITOR.
[2018-10-02] VITALS (57 sets, daily range): BP systolic 74–133; BP diastolic 40–88
--- NOTE | 2018-10-02 01:00 | NUR ---
REPOSITIONING COMPLETE. 5 ML RESIDUAL FROM PEG TUBE, FEEDINGS @ 50. VSS, NO SIGNS OF ACUTE DISTRESS. WILL CONTINUE TO MONITOR.
--- NOTE | 2018-10-02 03:00 | NUR ---
REASSESSMENT COMPLETE, SEE FLOWSHEET. CHG BATH, COMPLETE LINEN CHANGE, AND REPOSITIONING DONE. VSS, NO SIGNS OF DISTRESS.
--- NOTE | 2018-10-02 05:00 | NUR ---
LABS DRAWN AND SENT TO LAB. VSS, NO ACUTE SIGNS OF DISTRESS.
[2018-10-02 06:14] LABS: ANION GAP 16.1 mmol/L (8-16); BILIRUBIN - TOTAL 1.26 mg/dL (0.2-1.3); CALCIUM 7.6 mg/dL (8.5-10.1); CARBON DIOXIDE 23.9 mmol/L (21.0-32.0); MAGNESIUM - SERUM 2.8 mg/dL (1.8-2.4)
[2018-10-02 06:32] LABS: HEMATOCRIT 28.9 % (42.0-54.0); HEMOGLOBIN 9.9 g/dL (13.5-17.5); MCHC 34.3 g/dL (31.0-37.0); MCV 84.8 fL (80.0-100.0); MEAN PLATELET VOLUME 10.2 fL (7.4-10.4); PLATELET COUNT 222 10x3/uL (130-400); RBC 3.41 10x6/uL (4.20-6.10); RDW 17.7 % (11.5-14.5); WBC 13.6 10x3/uL (4.8-10.8)
--- NOTE | 2018-10-02 07:00 | NUR ---
RECEIVED REPORT FROM NIGHT NURSE. PATIENT RESTING IN BED SEDATED ON VENTILATOR WITH TRACH AND PEG. VSS. WILL CONTINUE TO MONITOR
[2018-10-02 08:59] LABS: EOSINOPHILS 3 % (0-7); LYMPHOCYTES 50 % (15-50); MONOCYTES 6 % (2-11); NEUTROPHILS 40 % (40-80); PLATELET ESTIMATE NORMAL
[2018-10-02 09:00] LABS: ANISOCYTOSIS 1+; ROULEAUX OCC; SMUDGE CELLS 1+
--- NOTE | 2018-10-02 09:00 | NUR ---
FLUSHED LLOYD URINE IS BLACK. FLUSHED WELL. VSS. WILL CONTINUE TO MONITOR
--- NOTE | 2018-10-02 09:52 | NUR ---
Nutrition follow-up: PEG/Trach placed 09/30 Nepro now infusing at goal rate of 50 ml/hr 25 ml H2O flush q hour Labs reviewd Wt: 270# + loose BM's Pt tolerating TF at this time RDN following.
--- NOTE | 2018-10-02 11:00 | NUR ---
PULLED PATIENT UP IN BED AND TURNED TO RIGHT SIDE. SUCTIONED TRACH. VSS.
--- NOTE | 2018-10-02 13:44 | NUR ---
PATIENT HAD INCONTINENT BM. NURSES CLEANED AND CHANGED LINENS. TURNED TO RIGHT SIDE.
--- NOTE | 2018-10-02 14:36 | NUR ---
RESTARTED LEVOPHED DRIP PER DR. MAYER FOR HYPOTENSION. BP 74/42. MAP 51. WILL TITRATE TOLERATED.
[2018-10-02 16:08] LABS: FUNGUS STAIN Final report (())
--- NOTE | 2018-10-02 17:02 | NUR ---
CHANGED TUBING FOR NEPRO TF. VSS.
--- NOTE | 2018-10-02 17:31 | NUR ---
CHANGED OUT PROPOFOL TUBING.
--- NOTE | 2018-10-02 17:31 | NUR ---
ORAL CARE GIVEN. SUCTIONED MOUTH
--- NOTE | 2018-10-02 18:15 | NUR ---
HD STARTED AT THIS TIME
[2018-10-03] VITALS (54 sets, daily range): BP systolic 83–141; BP diastolic 46–73
[2018-10-03 06:59] LABS: BASOPHILS 0.2 % (0-2); EOSINOPHILS 3.6 % (0-7); HEMATOCRIT 30.2 % (42.0-54.0); HEMOGLOBIN 10.2 g/dL (13.5-17.5); LYMPHOCYTES 53.4 % (15-50); MCH 29.1 pg (26.0-34.0); MCHC 33.8 g/dL (31.0-37.0); MCV 86.3 fL (80.0-100.0); NEUTROPHILS 34.8 % (40-80); PLATELET COUNT 220 10x3/uL (130-400); RDW 18.3 % (11.5-14.5); WBC 14.6 10x3/uL (4.8-10.8)
--- NOTE | 2018-10-03 07:00 | NUR ---
RECEIVED REPORT FROM NIGHT NURSE. PATIENT SEDATED ON VENTILATOR WITH PROPOFOL AND FENTANYL. LEVOPHED FOR HYPOTENSION. VSS. WILL CONTINUE TO MONITOR
--- NOTE | 2018-10-03 07:17 | NUR ---
1900 ASSESSMENT COMPLETED AT THIS TIME. PT ON HEMODIALYSIS IN THE ROOM, WILL MONITOR FOR CHANGES IN CONDITION. 2100. MEDICINE GIVEN AT THIS TIME. PT STILL ON DIALYSIS, WILL CONTINUE TO MONITOR. 2300 REASSESSMENT COMPLETED AT THIS TIME, NO CHANGES IN CONDITON. WILL CONTINUE TO MONITOR. 0100 PT WAS TRUNED AT THIS TIME. SMALL BM NOTED. PERICARE GIVEN. PT JOHN PAUL. WELL 0300 PT TURNED AT THIS TIME, NO CHANGES NOTED IN CONDDITION NOTED, WILL CONTIUE TO MONITOR 0500 I&O, DAILY WEIGHTS, AND PT TURNED AT THIS TIME. WILL CONTIUE TO MONITOR PATIENT
--- NOTE | 2018-10-03 07:28 | NUR ---
VALERIE AMMONIA LAB FROM RIGHT PICC. TRIALYSIS NURSE ACCESS DOES NOT DRAW. PERFORMED ORAL CARE ON PATIENT AND SUCTIONED TRACH AND MOUTH--NO SECRETIONS. VSS. WILL CONTINUE TO MONITOR
[2018-10-03 07:34] LABS: BILIRUBIN - TOTAL 1.1 mg/dL (0.2-1.3); CALCIUM 7.4 mg/dL (8.5-10.1); CARBON DIOXIDE 26.6 mmol/L (21.0-32.0); CREATININE - SERUM 5.1 mg/dL (0.6-1.3); MAGNESIUM - SERUM 2.4 mg/dL (1.8-2.4); PHOSPHOROUS 7.3 mg/dL (2.5-4.9); PROTEIN - SERUM 5.6 g/dL (6.4-8.2)
[2018-10-03 08:21] LABS: ANION GAP 13.2 mmol/L (8-16); POTASSIUM - SERUM 3.8 mmol/L (3.5-5.1)
--- NOTE | 2018-10-03 09:00 | NUR ---
TITRATING LEVOPHED DOWN TOLERATED. VSS. IN ROOM.
--- NOTE | 2018-10-03 11:00 | NUR ---
PATIENT STABLE. OFF LEVOPHED DRIP. VSS
--- NOTE | 2018-10-03 13:00 | NUR ---
SUCTIONED PATIENT AND ORAL CARE GIVEN. TURNED TO RIGHT SIDE. VSS.
--- NOTE | 2018-10-03 17:22 | MORECARE ---
CASE MANAGEMENT DISCHARGE SUMMARY PATIENT: SYMONE SANTOS UNIT: [id number] ADM DATE: 09/14/18 AGE: 78 : 40 SEX: M ROOM/BED: D.2303 AUTHOR: MEY,DOC PHYSICIAN: REFERRING PHYSICIAN: JOE VASQUEZ MD DATE OF SERVICE: 10/03/18 Discharge Plan Patient Name: SYMONE SANTOS Facility: [facility]:[place] : 1940 Planned Disposition: Home Anticipated Discharge Date: 09/18/18 Discharge Date: Expected LOS: 4 Initial Reviewer: [email or web address] Initial Review Date: 09/14/2018 Generated: 10/03/18 6:22 pm Comments DCP- Discharge Planning Updated by [id number]: Fely Bear on 10/03/18 4:[address] 10/02/18 KELLY spoke with [facility] UR department. She stated that patient is on two sedating drugs and she didn't feel that the patient was stable to d/c to LTACH. She stated that with him being on sedation that he could not actively participate in vent weaning. CM explained that he was on a very low dose and he gets hypercapnic and combative when turned off. She asked if CM wanted her to [facility] to medical parasitologist for review for decision of auth for LTACH. CM stated yes to go ahead and send for review. CM will continue to follow and assist as needed with discharge planning / needs. DCP- Discharge Planning Updated by [id number]: Fely Bear on 09/28/18 6:[address] LATE ENTRY 09/27/18 KELLY spoke with patients Angela and she would like [facility] LTACH in [place]. 09/28/18 KELLY called and faxed records to Starr at [facility]. CM had to clarify if they would accept patient with trialysis cath or if he needed to have hemosplit. Trialysis is alright for them. Starr called back and stated that [facility] requires patient to have trach before going to LTACH. KELLY notified nursing staff of this. Starr stated she would continue to work on auth. CM will continue to follow and assist in discharge planning / needs. DCP- Discharge Planning Updated by [email or web address]: Fely Bear on 09/26/18 4:[address] CM spoke with patient regarding [facility]. CM explained that because he hasn't been able to be weaned off vent then we are looking into skilled nursing care and possible trach / peg. Spouse verbalized understanding. CM explained that there is a facility in [place] the closest to her home. She would like to think it over and get back with CM in the morning. Patient has had to start on hemodialysis today. CM will continue to follow and assist as needed with discharge planning /needs. DCP- Discharge Planning Updated by [id number]: Fely Bear on 09/25/18 5:[address] CM received order for LTACH and was later notified that Dr. Benjamin requested to hold off on LtACH for now. CM will continue to follow and assist as needed with d/c planning/ needs. DCP- Discharge Planning Updated by [id number]: Fely Bear on 09/22/18 5:[address] CM spoke with patient's regarding potential placement / rehab. Spouse at this time isn't wanting to talk about any kind of placement. She stated that she doesn't drive and it would be best if he could have therapy at home. CM spoke with Dr. Casarez he stated that at this time it is to early to think of LTACH placement. CM will continue to follow and assist as needed with discharge planning /needs DCP- Discharge Planning Updated by [id number]: Fely Bear on 09/20/18 5:[address] CM spoke with respiratory and plans for Bronch on and possible extubation the next day. Fariha states that they have been weaning down vent. May want to wait on LTACH eval. CM will continue to follow and assist as needed with discharge planning / needs. DCP- Discharge Planning Updated by [id number]: Ann Pretty on 09/14/18 3:[address] Patient Name: SYMONE SANTOS Admission Status: ER Accout number: [id number] Admission Date: 09-14-2018 : 1940 Admission Diagnosis: Attending: JOE VASQUEZ Current LOS: 1 Anticipated DC Date: 09-18-2018 Planned Disposition: Home Primary Insurance: [employer] CHOICE PPO MCR ADVANT Discharge Planning Comments: CM met with patient's granddaughter (Yusra Fine [phone]) in the room to complete initial dc planning assessment. Patient on the vent and unable to complete assessment. CM educated Yusra on the CM role and verbal consent given by Yusra to complete assessment. CM verified patient's address, phone number, and emergency contact phone numbers. 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 At discharge Yusra is hopeful the patient will be able to return home and feels this is a safe discharge. CM discussed availability of home health, rehab services, and medical equipment. Yusra denied known discharge needs at this time. She reports patient's grandson Remington or another family member will transport him home at time of discharge. CM will continue to follow and will assist as needed with dc plans/needs. Avionics Integration Engineer: Ann Pretty RN, [facility] DCPIA - Discharge Planning Initial Assessment Updated by [email or web address]: Ann Pretty on 09/14/18 3:56 pm * Is the patient Alert and Oriented? No * PCP Dr. Louis Tejada * Pharmacy [facility] in [place] * Preadmission Environment Home with Family * ADLs Independent * Equipment None * List name and contact numbers for known caregivers / representatives who currently or will assist patient after discharge: Angela Santos - Spouse - [phone] Yusra Fine - grand-daughter - [phone] * Verbal permission to speak to the caregivers and representatives has been obtained from the patient. Yes * Community resources currently utilized None * Additional services required to return to the preadmission environment? No * Can the patient safely return to the preadmission environment? Yes * Has this patient been hospitalized within the prior 30 days at any hospital? No Coverage Notice Reviewer: [id number] Iona Bear Notice Issued Date-Time: 09/27/2018 13:30 Notice Type: Patient Choice Letter Notice Delivered To: Family Member Relationship to Patient: Spouse Supervisor Assembling Name: Angela Santos Delivery Method: HAND - Hand Delivered Hilaria Days: Prior Verbal Notification: Recipient Understood Notice: Yes Recipient Signature: Yes Med Rec Note Co-signed by Attending: Coverage Notice Comment: LTACH ECTOR Last DP export: 09/28/18 6:52 p Patient Name: SYMONE SANTOS Page [id number] at 1722 All edits/amendments must be made on the electronic document DICTATION DATE: 10/03/181721 TECH INTERN: TALON 10/03/181721 RPT#: [id number] DC DATE: STATUS: ADM IN [facility] [address] [place] [address] END OF REPORT
--- NOTE | 2018-10-03 19:00 | NUR ---
REPORT RECEIVED. RECEIVED PATIENT IN BED, SEDATED/VENTILATED. HOB UP 30 DEGREES. 8.0 TRACH INTACT/SECURE/PATENT AND CONNECTED TO MECHANICAL VENT WITH SETTINGS ORDERED. MONITORS CONNECTED TO PATIENT WITH ALARMS SET. VSS
[2018-10-04] VITALS (24 sets, daily range): BP systolic 88–129; BP diastolic 51–87
--- NOTE | 2018-10-04 08:16 | NUR ---
AT BEDSIDE. UPDATE PROVIDED. PT HAS RASH. DR SMITH BY TO SEE PATIENT. DULCOLAX SUPPOSITORY ORDERED FOR DISTENTION.
--- NOTE | 2018-10-04 09:03 | NUR ---
SUPPOSITORY GIVEN. PT CLENCHED BUTTOCKS WHEN NURSE TRYING TO INSERT. PT HAS EYES OPEN AND MOVING HEAD BACK AND FORTH. DOES NOT FOLLOW VOICE, DOES NOT FOLLOW COMMANDS.
--- NOTE | 2018-10-04 09:19 | NUR ---
Nutrition follow-up: Pt remains intubated; sedation being weaned With Treach PEG Nepro infusing @ 50 ml/hr with 25 ml H2O flush q hour Labs reviewd Wt: 229# +BM RDN following.
--- NOTE | 2018-10-04 11:24 | NUR ---
pt on dialysis at this time. had large liquid bm.
[2018-10-04 13:09] LABS: FUNGUS MYCOLOGY CULTURE Preliminary report (())
--- NOTE | 2018-10-04 13:23 | NUR ---
at bedside at this time. dialysis nurse completing treatment. pt restless, moves all extremities, does not follow commands. sedation off.
[2018-10-04 14:09] LABS: FUNGUS CULTURE RESULT 1 Candida albicans (()); FUNGUS MYCOLOGY CULTURE Preliminary report (())
--- NOTE | 2018-10-04 15:23 | NUR ---
pt cleaned up from loose liquid stool. new linens. fentanyl has been discontinued. pt winces as if in pain, but does not follow voice commands, does not track voice. oral care provided.
--- NOTE | 2018-10-04 17:37 | NUR ---
MEDICATION ADMINISTERED SEE EMAR. PEG FLUSHED WITH 60ML H2O POST MEDICATION ADMINISTRATION.
--- NOTE | 2018-10-04 17:49 | MORECARE ---
CASE MANAGEMENT DISCHARGE SUMMARY PATIENT: SYMONE SANTOS UNIT: [id number] ADM DATE: 09/14/18 AGE: 78 : 40 SEX: M ROOM/BED: D.2303 AUTHOR: MEY,DOC PHYSICIAN: REFERRING PHYSICIAN: JOE VASQUEZ MD DATE OF SERVICE: 10/04/18 Discharge Plan Patient Name: SYMONE SANTOS Facility: [facility]:[place] : 1940 Planned Disposition: Home Anticipated Discharge Date: 09/18/18 Discharge Date: Expected LOS: 4 Initial Reviewer: [email or web address] Initial Review Date: 09/14/2018 Generated: 10/04/18 6:49 pm DCP- Discharge Planning Updated by [id number]: Fely Bear on 10/04/18 4:[address] CM received notice from [facility] that [facility] had denied auth for LTACH. [facility] dept. stated they had attempted to do P2P with patients MD but didn't get in touch with him. CM asked which Dr. they had tried to call. Unable to answer that. Starr stated that they told her that they couldn't resubmit another auth for LTACH for 5 days. KELLY tried to call [facility] to find out which doctor was called for p2p but never could get in touch with outside sales account representative. DCP- Discharge Planning Updated by [id number]: Fely Bear on 10/03/18 4:[address] 10/02/18 KELLY spoke with [facility] department. She stated that patient is on two sedating drugs and she didn't feel that the patient was stable to d/c to LTACH. She stated that with him being on sedation that he could not actively participate in vent weaning. CM explained that he was on a very low dose and he gets hypercapnic and combative when turned off. She asked if CM wanted her to [facility] records to medical office technician for review for decision of auth for LTACH. CM stated yes to go ahead and send for review. CM will continue to follow and assist as needed with discharge planning / needs. DCP- Discharge Planning Updated by [id number]: Fely Bear on 09/28/18 6:[address] LATE ENTRY 09/27/18 CM spoke with patients Angela and she would like [facility]ACH [place]. 09/28/18 CM called and faxed records to Starr at [facility]. CM had to clarify if they would accept patient with trialysis cath or if he needed to have hemosplit. Trialysis is alright for them. Starr called back and stated that [employer] requires patient to have trach before going to LTACH. CM notified nursing staff of this. Starr stated she would continue to work on auth. CM will continue to follow and assist in discharge planning / needs. DCP- Discharge Planning Updated by [id number]: Fely Bear on 09/26/18 4:[address] CM spoke with patient regarding [facility]. CM explained that because he hasn't been able to be weaned off vent then we are looking into luncheonette operator care and possible trach / peg. Spouse verbalized understanding. CM explained that there is a facility in [facility] that would be the closest to her home. She would like to think it over and get back with CM in the morning. Patient has had to start on hemodialysis today. CM will continue to follow and assist as needed with discharge planning /needs. DCP- Discharge Planning Updated by [id number]: Fely Bear on 09/25/18 5:[address] CM received order for LTACH and was later notified that Dr. Benjamin requested to hold off on LtACH for now. CM will continue to follow and assist as needed with d/c planning/ needs. DCP- Discharge Planning Updated by [email or web address]: Fely Bear on 09/22/18 5:[address] CM spoke with patient's regarding potential placement / rehab. Spouse at this time isn't wanting to talk about any kind of placement. She stated that she doesn't drive and it would be best if he could have therapy at home. CM spoke with Dr. Casarez he stated that at this time it is to early to think of LTACH placement. CM will continue to follow and assist as needed with discharge planning /needs DCP- Discharge Planning Updated by [id number]: Fely Bear on 09/20/18 5:[address] CM spoke with respiratory and plans for Bronch on and possible extubation the next day. Fariha states that they have been weaning down vent. May want to wait on LTACH eval. CM will continue to follow and assist as needed with discharge planning / needs. DCP- Discharge Planning Updated by [id number]: Ann Pretty on 09/14/18 3:[address] Patient Name: SYMONE SANTOS Admission Status: ER Accout number: [id number] Admission Date: 09-14-2018 : 1940 Admission Diagnosis: Attending: JOE VASQUEZ Current LOS: 1 Anticipated DC Date: 09-18-2018 Planned Disposition: Home Primary Insurance: [employer] CHOICE PPO MCR ADVANT Discharge Planning Comments: CM met with patient's granddaughter (Yusra Fine [phone]) in the room to complete initial dc planning assessment. Patient on the vent and unable to complete assessment. CM educated Yusra on the CM role and verbal consent given by Yusra to complete assessment. CM verified patient's address, phone number, and emergency contact phone numbers. 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 At discharge Yusra is hopeful the patient will be able to return home and feels this is a safe discharge. CM discussed availability of home health, rehab services, and medical equipment. Yusra denied known discharge needs at this time. She reports patient's grandson Remington or another family member will transport him home at time of discharge. CM will continue to follow and will assist as needed with dc plans/needs. [employer] Field Supervisor: Ann Pretty RN, [facility] DCPIA - Discharge Planning Initial Assessment Updated by [id number]: Ann Pretty on 09/14/18 3:56 pm * Is the patient Alert and Oriented? No * PCP Dr. Louis Tejada * Pharmacy [facility] in [place] * Preadmission Environment Home with Family * ADLs Independent * Equipment None * List name and contact numbers for known caregivers / representatives who currently or will assist patient after discharge: Angela Santos - Spouse - [phone] Yusra Fine - grand-daughter - [phone] * Verbal permission to speak to the caregivers and representatives has been obtained from the patient. Yes * Community resources currently utilized None * Additional services required to return to the preadmission environment? No * Can the patient safely return to the preadmission environment? Yes * Has this patient been hospitalized within the prior 30 days at any hospital? No Coverage Notice Reviewer: [id number] Iona Bear Notice Issued Date-Time: 09/27/2018 13:30 Notice Type: Patient Choice Letter Notice Delivered To: Family Member Relationship to Patient: Spouse Analytical Engineer Name: Angela Santos Delivery Method: HAND - Hand Delivered Hilaria Days: Prior Verbal Notification: Recipient Understood Notice: Yes Recipient Signature: Yes Med Rec Note Co-signed by Attending: Coverage Notice Comment: LTACH ECTOR Last DP export: 10/03/18 4:23 p Patient Name: SYMONE SANTOS Page [phone] at 1741 All edits/amendments must be made on the electronic document DICTATION DATE: 10/04/181748 IRB COMPLIANCE COORDINATOR: TALON 10/04/181748 RPT#: [id number] DC DATE: STATUS: ADM IN [facility] [address] [place] [address] END OF REPORT
[2018-10-05] VITALS (23 sets, daily range): BP systolic 112–146; BP diastolic 65–97
[2018-10-05 09:08] LABS: HEMOGLOBIN 10.5 g/dL (13.5-17.5); MCH 28.9 pg (26.0-34.0); MCHC 33.9 g/dL (31.0-37.0); MCV 85.4 fL (80.0-100.0); PLATELET COUNT 185 10x3/uL (130-400); RBC 3.63 10x6/uL (4.20-6.10); RDW 17.8 % (11.5-14.5); WBC 17.6 10x3/uL (4.8-10.8)
[2018-10-05 09:18] LABS: ANION GAP 17.9 mmol/L (8-16); CARBON DIOXIDE 23.8 mmol/L (21.0-32.0); CREATININE - SERUM 6.1 mg/dL (0.6-1.3); POTASSIUM - SERUM 3.7 mmol/L (3.5-5.1)
[2018-10-05 10:55] LABS: BASOPHILS 1 % (0-2); EOSINOPHILS 1 % (0-7); LYMPHOCYTES 38 % (15-50); MONOCYTES 8 % (2-11); NEUTROPHILS 50 % (40-80); PLATELET ESTIMATE NORMAL
[2018-10-05 10:56] LABS: ROULEAUX OCC
--- NOTE | 2018-10-05 13:31 | NUR ---
large liquid bowel movement. full chg bath. full linen change.
[2018-10-06] VITALS (23 sets, daily range): BP systolic 108–150; BP diastolic 63–88
[2018-10-06 05:12] LABS: BASOPHILS 0.1 % (0-2); EOSINOPHILS 0.7 % (0-7); HEMATOCRIT 28.8 % (42.0-54.0); HEMOGLOBIN 9.9 g/dL (13.5-17.5); IMMATURE GRANULOCYTES 2.4 % (0-5); LYMPHOCYTES 55.1 % (15-50); MCH 29.3 pg (26.0-34.0); MCHC 34.4 g/dL (31.0-37.0); MCV 85.2 fL (80.0-100.0); MEAN PLATELET VOLUME 9.8 fL (7.4-10.4); NEUTROPHILS 38.7 % (40-80); PLATELET COUNT 199 10x3/uL (130-400); RBC 3.38 10x6/uL (4.20-6.10); WBC 17.4 10x3/uL (4.8-10.8)
[2018-10-06 05:26] LABS: ANION GAP 17.8 mmol/L (8-16); CALCIUM 8.2 mg/dL (8.5-10.1); CREATININE - SERUM 7.1 mg/dL (0.6-1.3); POTASSIUM - SERUM 3.8 mmol/L (3.5-5.1)
--- NOTE | 2018-10-06 09:52 | NUR ---
NUTRITION F/U PT WITH TRACH AND PEG, TOLERATING NEPRO AT GOAL RATE 50 CC/HR. WILL CONTINUE TO MONITOR . RD FOLLOWING
--- NOTE | 2018-10-06 10:05 | NUR ---
DR YOUNGER LOOKING FOR UPDATE ON LTACH PLACEMENT. WANTS CASE MANAGEMENT TO APPLY TO 5 LTACH FACILITIES AND WANTS AN APPROVAL BY NOON TODAY.
--- NOTE | 2018-10-06 17:33 | NUR ---
PT CLEANED UP FROM LOOSE BM
[2018-10-07] VITALS (24 sets, daily range): BP systolic 100–138; BP diastolic 63–81
--- NOTE | 2018-10-07 05:15 | NUR ---
NO VISITORS PRESENT AT THIS TIME, VSS, CONT POC.
[2018-10-07 05:38] LABS: HEMATOCRIT 30.2 % (42.0-54.0); HEMOGLOBIN 10.3 g/dL (13.5-17.5); MCH 29.3 pg (26.0-34.0); MCHC 34.1 g/dL (31.0-37.0); MEAN PLATELET VOLUME 10.2 fL (7.4-10.4); PLATELET COUNT 220 10x3/uL (130-400); RBC 3.51 10x6/uL (4.20-6.10); RDW 18.4 % (11.5-14.5); WBC 16.5 10x3/uL (4.8-10.8)
[2018-10-07 06:02] LABS: ANION GAP 15.5 mmol/L (8-16); CARBON DIOXIDE 24.1 mmol/L (21.0-32.0); CREATININE - SERUM 6.2 mg/dL (0.6-1.3); POTASSIUM - SERUM 3.6 mmol/L (3.5-5.1)
[2018-10-07 06:13] LABS: EOSINOPHILS 5 % (0-7); LYMPHOCYTES 55 % (15-50); MONOCYTES 3 % (2-11); NEUTROPHILS 37 % (40-80); PLATELET ESTIMATE NORMAL
--- NOTE | 2018-10-07 08:28 | NUR ---
LYING IN BED ON VENT VIA TRACH AT THIS TIME. NO ACUTE DISTRESS NOTED. PT OPENS EYES WHEN SPOKEN TO. DOES NOT CURRENTLY FOLLOW COMMANDS. VSS. TURNED Q2H. ORAL CARE PROVIDED Q2H. WILL CONTINUE PLAN OF CARE.
--- NOTE | 2018-10-07 09:34 | NUR ---
PER DR YOUNGER, PLACE PT ON CPAP TRIAL. TURN OFF SEDATION DURING CPAP TRIAL.
--- NOTE | 2018-10-07 11:20 | NUR ---
CHG BATH PROVIDED AT THIS TIME. INCONTINENT BOWEL MOVEMENT, LIQUID BROWN, LARGE. TOTAL LINEN CHANGE PROVIDED. NO ACUTE DISTRESS NOTED. WILL CONTINUE PLAN OF CARE.
--- NOTE | 2018-10-07 13:17 | NUR ---
NO ACUTE DISTRESS NOTED. NO CHANGE. VSS. TURNED Q2H. ORAL CARE PROVIDED Q2H. WILL CONTINUE PLAN OF CARE.
--- NOTE | 2018-10-07 15:48 | NUR ---
NO ACUTE DISTRESS NOTED. NO CHANGE. VSS. PT ABLE TO FOLLOW SIMPLE COMMANDS SUCH WIGGLE TOES, SQUINT EYES. PT ALSO AT TIMES ANSWERS YES/NO QUESTIONS. QUESTIONS ANSWERED AND COMMAND FOLLOWING OCCURS ONLY AT TIMES, PT DOES NOT ANSWER QUESTIONS EVERY TIME OR FOLLOW COMMANDS EVERY TIME ASKED. PT ALSO NOTED TO MAKE EYE CONTACT WHEN STAFF WALKS IN TO ROOM. WILL CONTINUE PLAN OF CARE.
--- NOTE | 2018-10-07 17:35 | NUR ---
INCONTINENT BOWEL MOVEMENT NOTED AT THIS TIME, LIQUID DIARRHEA BROWN MEDIUM. TOTAL LINEN CHANGE PROVIDED. NO ACUTE DISTRESS NOTED. VSS. WILL CONTINUE PLAN OF CARE.
--- NOTE | 2018-10-07 19:00 | NUR ---
REPORT RECEIVED INITIAL ASSESSMENT COMPLETE PT LIGHTLY SEDATED WITH DIPRIVAN AT 10 MCG FOLLOWS COMMANDS CM READING SR ALARMS ON AND AUDIBLE. PT RESP GOING AGAINST AC VENT SETTINGS WILL MONITOR. ABD SOFT PEG IN PLACE WITH TUBE FEEDS IN PROGRESS MINIMAL RESIDUAL RECEIVED. SKIN W/D PPP.
--- NOTE | 2018-10-07 20:00 | NUR ---
VISITOR AT BEDSIDE FOR VISITATION. PTS CALLED AFTER GIVING PASS CODE UPDATE GIVEN.
--- NOTE | 2018-10-07 21:00 | NUR ---
INCREASED DIPRIVAN UP TO 11 MCG VSS PT ALERT BUT RESP INCREASING AND PT BECOMING ANXIOUS
--- NOTE | 2018-10-07 23:00 | NUR ---
REASSESSMENT MADE PTS VENT ALARMING OFTEN WITH AC SETTINGS INCREASED DIPRIVAN NOW AT 12 MCG VSS WILL CONTINUE TO MONITOR
--- NOTE | 2018-10-07 23:47 | NUR ---
ACCUCHECK 92 NO COVERAGE REQUIRED
[2018-10-08] VITALS (24 sets, daily range): BP systolic 102–149; BP diastolic 63–116
--- NOTE | 2018-10-08 01:00 | NUR ---
PARTIAL BATH CHG AND LINEN CHANGE AFTER PT INCONTINENT OF LARGE LIQUID BROWN STOOL PTS SKIN EXCORIATED APPLIED CREAM AFTER CLEANING UP
--- NOTE | 2018-10-08 03:00 | NUR ---
REASSESSMENT MADE NO CHANGES VSS NO DISTRESS NOTED CPOC
--- NOTE | 2018-10-08 05:00 | NUR ---
LARGE LIQUID STOOL PARTIAL BATH AND COMPLETE LINEN CHANGE CPOC VSS
[2018-10-08 06:27] LABS: BASOPHILS 0.2 % (0-2); EOSINOPHILS 0.9 % (0-7); HEMATOCRIT 30.1 % (42.0-54.0); HEMOGLOBIN 10.3 g/dL (13.5-17.5); IMMATURE GRANULOCYTES 1.6 % (0-5); LYMPHOCYTES 58.8 % (15-50); MCH 29.2 pg (26.0-34.0); MCHC 34.2 g/dL (31.0-37.0); MCV 85.3 fL (80.0-100.0); MEAN PLATELET VOLUME 10.1 fL (7.4-10.4); MONOCYTES 4.4 % (2-11); NEUTROPHILS 34.1 % (40-80); PLATELET COUNT 210 10x3/uL (130-400); RBC 3.53 10x6/uL (4.20-6.10); RDW 18.1 % (11.5-14.5); WBC 16.6 10x3/uL (4.8-10.8)
[2018-10-08 06:36] LABS: CALCIUM 7.9 mg/dL (8.5-10.1); CREATININE - SERUM 7.1 mg/dL (0.6-1.3)
--- NOTE | 2018-10-08 08:23 | NUR ---
UP IN BED ON VENT VIA TRACH, FAMILY AT BEDSIDE. PT NOTED TO BE MOVING LEGS ABOUT BED FREQUENTLY, PT WAS ASKED IF HE WAS UNCOMFORTABLE AND HE NODDED HIS HEAD "YES" REPOSITIONING WAS THEN PROVIDED AND NURSING ASKED PT IF HE WAS MORE COMFORTABLE NOW AND HE NODDED HIS HEAD "YES." NO ACUTE DISTRESS NOTED. PT FOLLOWS COMMANDS AT TIMES SUCH SQUINT EYES AND ANSWERS YES AND NO QUESTIONS AT TIMES. TURNED Q2H. ORAL CARE PROVIDED Q2H. VSS. WILL CONTINUE PLAN OF CARE.
--- NOTE | 2018-10-08 10:28 | NUR ---
LYING IN BED ON VENT VIA TRACH ON CPAP TRAIL. TOLERATING WELL. NO ACUTE DISTRESS NOTED. PT AWAKE FOLLOWS COMMANDS AT TIMES SUCH SQUINT EYES AND SQUEEZE HANDS AND ANSWERS YES/NO QUESTIONS AT TIMES. VSS. WILL CONTINUE PLAN OF CARE.
--- NOTE | 2018-10-08 12:23 | NUR ---
CHG BATH PROVIDED AT THIS TIME WITH TOTAL LINEN CHANGE. INCONTINENT BOWEL MOVEMENT NOTED DURING THIS TIME, LARGE LIQUID BROWN BOWEL MOVEMENT NOTED. KOREY CARE/LLOYD CARE PROVIDED. CALMOSEPTINE APPLIED TO GROIN AREAS AFTER CLEANING PROVIDED. NO ACUTE DISTRESS NOTED. VSS. WILL CONTINUE PLAN OF CARE.
--- NOTE | 2018-10-08 14:37 | NUR ---
GI CONSULT NOTED AT THIS TIME, NO GI AVALIABLE UNTIL TOMORROW. WILL NOTIFY RECIEVING NURSE OF CONSULT.
--- NOTE | 2018-10-08 16:09 | NUR ---
NO ACUTE DISTRESS NOTED. NO CHANGE. VSS. WILL CONTINUE PLAN OF CARE.
--- NOTE | 2018-10-08 18:01 | NUR ---
UP IN BED ON VENT VIA TRACH. NO CHANGE. NO ACUTE DISTRESS NOTED. FAMILY AT BEDSIDE. VSS. WILL CONTINUE PLAN OF CARE.
--- NOTE | 2018-10-08 19:00 | NUR ---
REPORT RECIEVED, PT IN BED, ON VENT VIA TRACH AT 40% FIO2, ASSESSMENT COMPLETED, SEE MAR. PICC IN RIGHT UPPER ARM TO SL, LEFT IJ TRIALYSIS. PEG TUBE FEEDING NEPHRO AT 50CC/HR AT 5CM PLACEMENT. VITALS STABLE, WILL CONTINUE TO MONITOR
--- NOTE | 2018-10-08 21:00 | NUR ---
PT MILDLY AGITATED, COMPLETE LINEN CHANGE, VITALS STABLE. PM MEDS GIVEN, SEE MAR.
--- NOTE | 2018-10-08 23:00 | NUR ---
PT AGITATED, VITALS STABLE, WILL CONTNINUE TO MONITOR.
[2018-10-09] VITALS (24 sets, daily range): BP systolic 116–160; BP diastolic 61–89
--- NOTE | 2018-10-09 01:05 | NUR ---
PARTIAL LINEN CHANGE, VITALS STABLE, COOPERATIVE AT THIS TIME. WILL CONTINUE TO MONITOR.
--- NOTE | 2018-10-09 03:00 | NUR ---
FEEDING TUBE CHANGED, VITALS STABLE. WILL CONTINUE TO MONITOR.
[2018-10-09 05:15] LABS: BASOPHILS 0.3 % (0-2); EOSINOPHILS 0.5 % (0-7); HEMATOCRIT 29.1 % (42.0-54.0); IMMATURE GRANULOCYTES 1.3 % (0-5); LYMPHOCYTES 53.7 % (15-50); MCH 29.2 pg (26.0-34.0); MCHC 34.4 g/dL (31.0-37.0); MCV 84.8 fL (80.0-100.0); MEAN PLATELET VOLUME 10.1 fL (7.4-10.4); MONOCYTES 4.5 % (2-11); NEUTROPHILS 39.7 % (40-80); PLATELET COUNT 188 10x3/uL (130-400); RBC 3.43 10x6/uL (4.20-6.10); RDW 17.5 % (11.5-14.5); WBC 18.7 10x3/uL (4.8-10.8)
[2018-10-09 05:39] LABS: ANION GAP 21.2 mmol/L (8-16); CARBON DIOXIDE 21.1 mmol/L (21.0-32.0); CREATININE - SERUM 8.1 mg/dL (0.6-1.3); POTASSIUM - SERUM 4.3 mmol/L (3.5-5.1)
--- NOTE | 2018-10-09 07:00 | NUR ---
REC'D REPORT AND RESUMED CARE, AWAKE AND FOLLOWS COMMANDS, ON VENT IN CPAP MODE, CONNECTED TO TRACH, RIGHT IJ TRIALYSIS CATH SL, RIGHT UPPER ARM PICC SL, NO IVF INFUSING AT THIS TIME, PEG WITH NEPRO INFUSING AT 50 CC/HR, LLOYD TO GRAVITY WITH DARK DRAINAGE TO BAG, PEG WITH 10 CC RESIDUAL, FLUSHE WITH 30 CC H20, SCD'S B/L AND AIR OVERLAY MATTRESS IN USE, VSS, SHAES HEAD NO TO PAIN, ASSESSMENT COMPLETED PER FLOWSHEET, REPOSITIONED TO THE RIGHT SIDE WITH PILLOW PROPPED TO BACK AND HEELS FLOATED.
--- NOTE | 2018-10-09 07:15 | NUR ---
PERIPAD SOILED, INCONTINENT OF BROWN DIARRHEA STOOL, SKINCARE AND PARTIAL LINEN CHANGE COMPLETED
--- NOTE | 2018-10-09 09:00 | NUR ---
MORNING MEDS GIVEN PER MAY FLOWSHEET
--- NOTE | 2018-10-09 09:34 | NUR ---
Nutrition follow-up: Trach to vent Peg tube with Nepro @ 50 ml/hr Labs reviewed Wt: 263# Tolerating TF @ goal RDN following
--- NOTE | 2018-10-09 11:00 | NUR ---
RESTING QUIETLY WITH NO SIGNS OF DISTRESS, VSS, CONTINUES ON BIPAP, ORAL CARE AND SUCTION COMPLETED, ASSESSMENT COMPLETED PER FLOWSHEET
--- NOTE | 2018-10-09 13:45 | NUR ---
LEGS OVER SIDE OF BED MATTRESS, REPOSITIONED UP AND TO BACK WITH HEELS FLOATED.
--- NOTE | 2018-10-09 15:00 | NUR ---
NO ACUTE CHANGE FROM PREVIOUS, ASSESSMENT COMPLETED PER FLOWSHEET, VSS, REPOSITIONED TO RIGHT SIDE WITH PILLOW PROPPED TO BACK AND HEELS FLOATED, TOLERATED WITHOUT DIFFICULTY,
--- NOTE | 2018-10-09 17:30 | NUR ---
CHG BATH GIVEN PER FLOWSHEET
--- NOTE | 2018-10-09 21:08 | NUR ---
COMPLETE LINEN CHANGE AND KOREY CARE PERFORMED, PT TOLERATING WELL. VITALS STABLE
--- NOTE | 2018-10-09 22:21 | NUR ---
PT STARTED ON DIALYSIS, WILL CONTINUE TO MONITOR
--- NOTE | 2018-10-09 23:55 | NUR ---
PT RECIEVING DIALYSIS. PT IS CALM AND COOPERATIVE, NO ACUTE DISTRESS NOTED.
[2018-10-10] VITALS (24 sets, daily range): BP systolic 122–169; BP diastolic 62–95
--- NOTE | 2018-10-10 00:55 | NUR ---
PT RECIEVING DIALYSIS, NO SIGNS OF ACUTE DISTRESS OBSERVED VITALS STABLE, RT IN ROOM WITH PT. WILL CONTINUE TO MONITOR.
--- NOTE | 2018-10-10 03:00 | NUR ---
VITALS STABLE, PT IN BED, QUIETLY RESTING, NO SIGNS OF ACUTE DISTRESS.
--- NOTE | 2018-10-10 04:27 | NUR ---
PT RESTING, NO SIGNS OF ACUTE DISTRESS, VITALS STABLE, WILL CONTINUE TO MONITOR
[2018-10-10 04:58] LABS: HEMATOCRIT 29.9 % (42.0-54.0); HEMOGLOBIN 10.4 g/dL (13.5-17.5); MCH 29.3 pg (26.0-34.0); MCHC 34.8 g/dL (31.0-37.0); MCV 84.2 fL (80.0-100.0); MEAN PLATELET VOLUME 9.7 fL (7.4-10.4); PLATELET COUNT 181 10x3/uL (130-400); RBC 3.55 10x6/uL (4.20-6.10); RDW 17.6 % (11.5-14.5); WBC 19.5 10x3/uL (4.8-10.8)
[2018-10-10 05:22] LABS: ALBUMIN 2.4 g/dL (3.4-5.0); ANION GAP 15.8 mmol/L (8-16); BILIRUBIN - TOTAL 1.2 mg/dL (0.2-1.3); CALCIUM 7.7 mg/dL (8.5-10.1); CREATININE - SERUM 6.1 mg/dL (0.6-1.3); MAGNESIUM - SERUM 2.4 mg/dL (1.8-2.4); PHOSPHOROUS 6.1 mg/dL (2.5-4.9); POTASSIUM - SERUM 3.8 mmol/L (3.5-5.1); PROTEIN - SERUM 6.6 g/dL (6.4-8.2)
[2018-10-10 05:57] LABS: EOSINOPHILS 1 % (0-7); LYMPHOCYTES 64 % (15-50); MONOCYTES 4 % (2-11); NEUTROPHILS 30 % (40-80); PLATELET ESTIMATE DECREASED
--- NOTE | 2018-10-10 07:00 | NUR ---
REC'D REPORT AND RESUMED CARE, AWAKE AND ALERT, FOLLOWS SOME COMMANDS, VSS, SHAKES HEAD NO TO QUESTION OF PAIN, TRACH TO VENT AND SECURED, VENT IN CPAP MODE WITH 40% FIO2, SAT 98%, RIGHT UPPER ARM MIDLINE AND RIGHT IJ TRIALYSIS IN PLACE,,, DRESSING ARE CLEAN DRY AND INTACT, G TUBE IN PLACE WITH NEPRO INFUSING, RESIDUAL CHECK, 5 CC, LLOYD TO GRAVITY WITH BLOODY DRAINAGE TO BAG, HEEL PROTECTORS B/L AND AIR OVERLAY MATTRESS IN USE, ASSESSMENT COMPLETED PER FLOWSHEET, REPOSITIONED UP AND TO LEFT SIDE
--- NOTE | 2018-10-10 07:53 | NUR ---
TF OFF FOR PENDING U/S, LINE FLUSHED WITH 30 CC H2O
--- NOTE | 2018-10-10 09:00 | NUR ---
MORNING MEDS GIVEN PER MAY FLOWSHEET
--- NOTE | 2018-10-10 10:33 | NUR ---
CHG BATH GIVEN PER PROTOCAL
--- NOTE | 2018-10-10 11:42 | NUR ---
CHANGED TO TRACH COLLAR @ 35% BY RT
--- NOTE | 2018-10-10 13:30 | NUR ---
CHANGED ANDRES TO CPAP BY RT, WILL ATTEMPT TRACH COLLAR AGAIN ON TOMORROW
--- NOTE | 2018-10-10 15:00 | NUR ---
RESTING QUIETLY WITH NO SIGN OF DISTRESS, VSS, NO ACUTE CHANGE FROM PREVIOUS
--- NOTE | 2018-10-10 19:20 | NUR ---
Received patient resting in bed with eyes open, assessment completed per flowsheet. Patient opens eyes spontaneously/weakly follows instructions, nods head appropriately to questions. 8.0 Trach secured, no bleeding noted. S1/S2 noted NSR on telemetry with HR 85, rythmic and regular. Breathing is shallow on Trach collar @ 35% with O2 sat 98%, lung sounds clear bilateral uppper and mid with diminished lower. Bhatia secured, dark bloody urine noted. Generalized edema/slight weakness noted all, all pulses palpable with cap refill < 3 sec. Denies pain at this time, see flowsheet for details. All VSS and will continue to monitor.
--- NOTE | 2018-10-10 21:10 | NUR ---
HS meds given as ordered, patient resting in bed with eyes open on Trach collar. Oral care provided, repositioned for comfort and will continue to monitor.
--- NOTE | 2018-10-10 23:10 | NUR ---
Reassessment completed per flowsheet, no changes noted from previous assessment. S1/S2 noted NSR on telemetry, rythmic and regular. Breathing is shallow on Trach Collar 35% with O2 sat 96%. Abdomen is distended/firm with bowel sounds active x4, non-tender. All pulses palpable with cap refill < 3 sec, skin warm/dry. Denies pain or other needs at this time, see flowsheet for details. All VSS and will continue to monitor.
--- NOTE | 2018-10-10 23:40 | NUR ---
Patient highly agitated and moving around in bed after being changed to A/C on vent, discussed with RT and fabric awning repairer. Patient not tolerating vent changes, requested RT to change settings aparna to spontaneous breathing. Patient calmed with respirations decreased from 34 to 18, BP stable with HR decreased. Will notify dayshift RN and physician of changes.
[2018-10-11] VITALS (24 sets, daily range): BP systolic 129–154; BP diastolic 71–91
--- NOTE | 2018-10-11 01:00 | NUR ---
Patient resting in bed with eyes closed, no s/s of distress at this time. Repositioned for comfort, no further needs and will continue to monitor.
--- NOTE | 2018-10-11 03:10 | NUR ---
Reassessment completed per flowsheet, no changes noted from previous assessment. Patient denies pain or other needs at this time, repositioned for comfort. See flowsheet for details, all VSS and will continue to monitor.
[2018-10-11 06:03] LABS: ANION GAP 16.3 mmol/L (8-16); BASOPHILS 0.2 % (0-2); CALCIUM 7.8 mg/dL (8.5-10.1); CARBON DIOXIDE 23.8 mmol/L (21.0-32.0); CREATININE - SERUM 7.3 mg/dL (0.6-1.3); EOSINOPHILS 0.8 % (0-7); HEMATOCRIT 29.2 % (42.0-54.0); HEMOGLOBIN 10.1 g/dL (13.5-17.5); IMMATURE GRANULOCYTES 0.6 % (0-5); LYMPHOCYTES 50.9 % (15-50); MCH 29.3 pg (26.0-34.0); MCHC 34.6 g/dL (31.0-37.0); MCV 84.6 fL (80.0-100.0); MEAN PLATELET VOLUME 10.1 fL (7.4-10.4); MONOCYTES 4.2 % (2-11); NEUTROPHILS 43.3 % (40-80); PLATELET COUNT 167 10x3/uL (130-400); POTASSIUM - SERUM 4.1 mmol/L (3.5-5.1); RBC 3.45 10x6/uL (4.20-6.10); WBC 18.5 10x3/uL (4.8-10.8)
--- NOTE | 2018-10-11 07:15 | NUR ---
REPORT RECIEVED, SHIFT ASSESSMENT COMPLETE, PT IS AWAKE AND ALERT, FOLLOWS COMMANDS, ON 35% TRACH COLLAR WITH 95% O2 SAT, PATENT G-TUBE, DRSG CDI, ALL PPP, VSS, WILL CON'T TO MONITOR
--- NOTE | 2018-10-11 10:03 | NUR ---
NUTRITION F/U NEPRO RESUMED CURRENTLY AT GOAL RATE 50 CC/HR. WILL CONTINUE TO PROVIDE NEPRO, MONITOR PT PROGRESS. RD FOLLOWING
--- NOTE | 2018-10-11 11:15 | NUR ---
REASSESSMENT COMPLETE, NO CHANGES NOTED, PT RESTING COMFORTABLY AT THIS TIME, WILL CON'T TO MONITOR
--- NOTE | 2018-10-11 13:15 | NUR ---
SM BM AT THIS TIME, COMPLETE LINEN CHANGE, REPOSITIONED FOR COMFORT
--- NOTE | 2018-10-11 15:15 | NUR ---
REASSESSMENT COMPLETE, NO CHANGES NOTED, PT RESTING AT THIS TIME, WILL CON'T TO MONITOR
--- NOTE | 2018-10-11 17:18 | NUR ---
LG BM AT THIS TIME, PARTIAL LINEN CHANGE
--- NOTE | 2018-10-11 18:09 | MORECARE ---
CASE MANAGEMENT DISCHARGE SUMMARY PATIENT: SYMONE SANTOS UNIT: [id number] ADM DATE: 09/14/18 AGE: 78 : 40 SEX: M ROOM/BED: D.2303 AUTHOR: MEY,DOC PHYSICIAN: REFERRING PHYSICIAN: JOE VASQUEZ MD DATE OF SERVICE: 10/11/18 Discharge Plan Patient Name: SYMONE SANTOS Facility: [facility]:[place] : 1940 Planned Disposition: Home Anticipated Discharge Date: 09/18/18 Discharge Date: Expected LOS: 4 Initial Reviewer: [email or web address] Initial Review Date: 09/14/2018 Generated: 10/11/18 7:09 pm Comments DCP- Discharge Planning Updated by [email or web address]: Fely Bear on 10/11/18 5:[address] CM still working on appeal for denial to LTACH with [facility]. CM should have result no later than 10/12/18. CM will continue to follow and assist as needed with discharge planning / needs. DCP- Discharge Planning Updated by [id number]: Fely Bear on 10/04/18 4:[address] CM received notice from [facility] that [facility] had denied auth for LTACH. [facility] UR dept. stated they had attempted to do P2P with patients MD but didn't get in touch with him. KELLY asked which Dr. they had tried to call. Unable to answer that. Starr stated that they told her that they couldn't resubmit another auth for LTACH for 5 days. KELLY tried to call [facility] to find out which doctor was called for p2p but never could get in touch with petroleum products sales representative. DCP- Discharge Planning Updated by [id number]: Fely Bear on 10/03/18 4:[address] 10/02/18 CM spoke with [facility] UR department. She stated that patient is on two sedating drugs and she didn't feel that the patient was stable to d/c to LTACH. She stated that with him being on sedation that he could not actively participate in vent weaning. KELLY explained that he was on a very low dose and he gets hypercapnic and combative when turned off. She asked if CM wanted her to [facility] records to medical fee clerk for review for decision of auth for LTACH. CM stated yes to go ahead and send for review. CM will continue to follow and assist as needed with discharge planning / needs. DCP- Discharge Planning Updated by [id number]: Fely Bear on 09/28/18 6:[address] LATE ENTRY 09/27/18 CM spoke with patients Angela and she would like [facility] LTACH in . 09/28/18 CM called and faxed records to Starr at [facility]. CM had to clarify if they would accept patient with trialysis cath or if he needed to have hemosplit. Trialysis is alright for them. Starr called back and stated that [employer] requires patient to have trach before going to LTACH. CM notified nursing staff of this. Starr stated she would continue to work on auth. CM will continue to follow and assist in discharge planning / needs. DCP- Discharge Planning Updated by [id number]: Fely Bear on 09/26/18 4:[address] CM spoke with patient regarding Insurance Adviser Acute Care. CM explained that because he hasn't been able to be weaned off vent then we are looking into termite control service representative care and possible trach / peg. Spouse verbalized understanding. CM explained that there is a facility in [facility] that would be the closest to her home. She would like to think it over and get back with CM in the morning. Patient has had to start on hemodialysis today. CM will continue to follow and assist as needed with discharge planning /needs. DCP- Discharge Planning Updated by [email or web address]: Fely Bear on 09/25/18 5:[address] CM received order for LTACH and was later notified that Dr. Benjamin requested to hold off on LtACH for now. CM will continue to follow and assist as needed with d/c planning/ needs. DCP- Discharge Planning Updated by [id number]: Fely Bear on 09/22/18 5:[address] CM spoke with patient's regarding potential placement / rehab. Spouse at this time isn't wanting to talk about any kind of placement. She stated that she doesn't drive and it would be best if he could have therapy at home. KELLY spoke with Dr. Casarez he stated that at this time it is to early to think of LTACH placement. CM will continue to follow and assist as needed with discharge planning /needs DCP- Discharge Planning Updated by [id number]: Fely Bear on 09/20/18 5:[address] CM spoke with respiratory and plans for Bronch on and possible extubation the next day. Fariha states that they have been weaning down vent. May want to wait on LTACH eval. CM will continue to follow and assist as needed with discharge planning / needs. DCP- Discharge Planning Updated by [id number]: Ann Pretty on 09/14/18 3:[address] Patient Name: SYMONE SANTOS Admission Status: ER Accout number: [id number] Admission Date: 09-14-2018 : 1940 Admission Diagnosis: Attending: JOE VASQUEZ Current LOS: 1 Anticipated DC Date: 09-18-2018 Planned Disposition: Home Primary Insurance: [employer] CHO[employer] PPO MCR ADVANT Discharge Planning Comments: CM met with patient's granddaughter (Yusra Fine [phone]) in the room to complete initial dc planning assessment. Patient on the vent and unable to complete assessment. CM educated Yusra on the CM role and verbal consent given by Yusra to complete assessment. CM verified patient's address, phone number, and emergency contact phone numbers. 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 At discharge Yusra is hopeful the patient will be able to return home and feels this is a safe discharge. CM discussed availability of home health, rehab services, and medical equipment. Yusra denied known discharge needs at this time. She reports patient's grandson Remington or another family member will transport him home at time of discharge. CM will continue to follow and will assist as needed with dc plans/needs. Receptionist Scheduler: Ann Pretty RN, [facility] DCPIA - Discharge Planning Initial Assessment Updated by [id number]: Ann Pretty on 09/14/18 3:56 pm * Is the patient Alert and Oriented? No * PCP Dr. Louis Tejada * Pharmacy [facility] in [place] * Preadmission Environment Home with Family * ADLs Independent * Equipment None * List name and contact numbers for known caregivers / representatives who currently or will assist patient after discharge: Angela Santos - Spouse - [phone] Yusra Fine - grand-daughter - [phone] * Verbal permission to speak to the caregivers and representatives has been obtained from the patient. Yes * Community resources currently utilized None * Additional services required to return to the preadmission environment? No * Can the patient safely return to the preadmission environment? Yes * Has this patient been hospitalized within the prior 30 days at any hospital? No Coverage Notice Reviewer: [id number] Iona Bear Notice Issued Date-Time: 09/27/2018 13:30 Notice Type: Patient Choice Letter Notice Delivered To: Family Member Relationship to Patient: Spouse Professor Of Religion Name: Anglea Santos Delivery Method: HAND - Hand Delivered Hilaria Days: Prior Verbal Notification: Recipient Understood Notice: Yes Recipient Signature: Yes Med Rec Note Co-signed by Attending: Coverage Notice Comment: LTACH ECTOR Last DP export: 10/04/18 4:49 p Patient Name: SYMONE SANTOS Page [id number] at 1809 All edits/amendments must be made on the electronic document DICTATION DATE: 10/11/181808 CYTOTECHNOLOGIST SUPERVISOR: TALON 10/11/181808 RPT#: [id number] DC DATE: STATUS: ADM IN [facility] [address] [place] [address] END OF REPORT
--- NOTE | 2018-10-11 19:15 | NUR ---
Received patient resting in bed with eyes closed, assessment completed per flowsheet. Patient nods appropriately/follows instructions, no verbal response. Oral care/suctioning provided, repositioned for comfort. Denies pain or other needs at this time, see flowswheet for details. All VSS and will continue to monitor.
--- NOTE | 2018-10-11 21:20 | NUR ---
Patient incontinent of bowel in bed, soft brown/yellow stool noted. Patient cleaned with linen change performed, Calmoseptine lotion applied. HS med given as ordered, all VSS and will continue to monitor.
--- NOTE | 2018-10-11 23:00 | NUR ---
Reassessment completed per flowsheet, no changes noted from previous assessment. Patient placed on SIMV @ 35% with O2 sat 96%, lung sounds clear bilateral upper and mid with diminished lower. Trach care provided by RT, thick yellow secretions removed. Oral care provided, repositioned for comfort. Denies pain or other needs at this time, see flowsheet for details. All VSS and will continue to monitor.
[2018-10-12] VITALS (12 sets, daily range): BP systolic 115–160; BP diastolic 58–88
--- NOTE | 2018-10-12 01:00 | NUR ---
Patient laying in bed with eyes open, no s/s of distress at this time. Denies pain or other needs, all VSS and will continue to monitor.
--- NOTE | 2018-10-12 02:57 | NUR ---
Reassessment completed per flowsheet, no changes noted from previous assessment. Patient resting in bed with eyes open, no s/s of distress at this time. Oral care provided, repositioned for comfort. No further needs at this time, see flowsheet for details. All VSS and will continue to monitor.
--- NOTE | 2018-10-12 05:00 | NUR ---
AM labs collected without difficulty, repositioned for comfort. Denies pain or other needs at this time, all VSS and will continue to monitor.
[2018-10-12 05:04] LABS: BASOPHILS 0.1 % (0-2); EOSINOPHILS 0.7 % (0-7); HEMATOCRIT 28.3 % (42.0-54.0); HEMOGLOBIN 9.6 g/dL (13.5-17.5); IMMATURE GRANULOCYTES 0.3 % (0-5); MCH 28.9 pg (26.0-34.0); MCHC 33.9 g/dL (31.0-37.0); MCV 85.2 fL (80.0-100.0); MEAN PLATELET VOLUME 10.1 fL (7.4-10.4); MONOCYTES 3.9 % (2-11); PLATELET COUNT 143 10x3/uL (130-400); RBC 3.32 10x6/uL (4.20-6.10); RDW 17.9 % (11.5-14.5); WBC 18.2 10x3/uL (4.8-10.8)
[2018-10-12 05:09] LABS: ANION GAP 14.6 mmol/L (8-16); CALCIUM 7.7 mg/dL (8.5-10.1); CARBON DIOXIDE 25.1 mmol/L (21.0-32.0); CREATININE - SERUM 6.3 mg/dL (0.6-1.3); POTASSIUM - SERUM 3.7 mmol/L (3.5-5.1)
--- NOTE | 2018-10-12 07:04 | NUR ---
PATIENT REPORT RECEIVED FROM MARKETING AUTOMATION ANALYST NURSE. SHIFT ASSESSMENT UNDERWAY. NO FAMILY AT BEDSIDE. WILL CONTINUE TO MONITOR
[2018-10-12 09:10] LABS: ANA REFLEX - DIRECT Negative (Negative)
--- NOTE | 2018-10-12 09:49 | NUR ---
UPDATE GIVEN TO ABOUT PT ACCEPTANCE TO LTACH
[2018-10-12] MEDS ORDERED: Lovenox INJ SC (11:45)
[2018-10-12] MEDS ORDERED: IPRAT-ALBUT 0.5-3 ML UPD (11:45)
[2018-10-12] MEDS ORDERED: HEPARIN SO1000 UNIT/ IV ×2 (11:45→11:46)
[2018-10-12] MEDS ORDERED: HEPARIN SO1000 UNIT/ INJ ×2 (11:45→11:46)
[2018-10-12] MEDS ORDERED: Retacrit SC (11:45)
[2018-10-12] MEDS ORDERED: ROBITUSSIN DM 110 ML PO (11:46)
[2018-10-12] MEDS ORDERED: CARDIZEM30 MG NG (11:46)
[2018-10-12] MEDS ORDERED: GLUCAGEN1 MG/VIAL SC (11:47)
[2018-10-12] MEDS ORDERED: GLUCAGEN1 MG/VIAL IM (11:47)
[2018-10-12] MEDS ORDERED: CALMOSEPTINE OI71 GM TOPICAL (11:47)
[2018-10-12] MEDS ORDERED: HUMULIN R100 U/ML SC (11:47)
--- NOTE | 2018-10-12 13:11 | NUR ---
PATIENT REPORT GIVEN TO SHAMEKA AT [facility]. PATIENT LEFT 1315 VIA AMBULANCE.
--- NOTE | 2018-10-12 13:25 | NUR ---
PT DC'D AT THIS TIME WITH AMBULANCE
[2018-10-13 14:09] LABS: MITOCHONDRIAL ANTIBODY 46.7 Units (0.0-20.0); SMOOTH MUSCLE ABS (ACTIN) 8 Units (0-19)
--- NOTE | 2018-10-13 19:24 | MORECARE ---
CASE MANAGEMENT DISCHARGE SUMMARY PATIENT: SYMONE SANTOS UNIT: [id number] ADM DATE: 09/14/18 AGE: 78 : 40 SEX: M ROOM/BED: D.2303 AUTHOR: MEY,DOC PHYSICIAN: REFERRING PHYSICIAN: JOE VASQUEZ MD DATE OF SERVICE: 10/13/18 Discharge Plan Patient Name: SYMONE SANTOS Facility: [facility]:[place] : 1940 Planned Disposition: Home Anticipated Discharge Date: 09/18/18 Discharge Date: 10/12/2018 Expected LOS: 4 Initial Reviewer: [email or web address] Initial Review Date: 09/14/2018 Generated: 10/13/18 8:24 pm Comments DCP- Discharge Planning Updated by [id number]: Fely Bear on 10/13/18 6:[address] LATE ENTRY 10/12/18 CM received notification that LTACH denial has been overturned. CM notified Starr @ LTACH. Starr came to facility and reassessed patient and received updated paperwork and cd of films. Plan to d/c to LTACH today. [facility] notified and plan to transport @ 1pm. D/C IMM COMPLETED . DCP- Discharge Planning Updated by [id number]: Fely Bear on 10/11/18 5:[address] CM still working on appeal for denial to LTACH with [employer]. CM should have result no later than 10/12/18. CM will continue to follow and assist as needed with discharge planning / needs. DCP- Discharge Planning Updated by [email or web address]: Fely Bear on 10/04/18 4:[address] CM received notice from Starr @ [facility] that [employer] had denied auth for LTACH. [employer] UR dept. stated they had attempted to do P2P with patients MD but didn't get in touch with him. CM asked which Dr. they had tried to call. Unable to answer that. Starr stated that they told her that they couldn't resubmit another auth for LTACH for 5 days. CM tried to call [employer] to find out which doctor was called for p2p but never could get in touch with fraud representative. DCP- Discharge Planning Updated by [email or web address]: Fely Bear on 10/03/18 4:[address] 10/02/18 CM spoke with [facility] department. She stated that patient is on two sedating drugs and she didn't feel that the patient was stable to d/c to LTACH. She stated that with him being on sedation that he could not actively participate in vent weaning. CM explained that he was on a very low dose and he gets hypercapnic and combative when turned off. She asked if CM wanted her to [facility] to medical center representative for review for decision of auth for LTACH. CM stated yes to go ahead and send for review. CM will continue to follow and assist as needed with discharge planning / needs. DCP- Discharge Planning Updated by [id number]: Fely Marianela on 09/28/18 6:[address] LATE ENTRY 09/27/18 KELLY spoke with patients Lashay and she would like [facility] LTACH in . 09/28/18 CM called and faxed records to Starr at [facility]. CM had to clarify if they would accept patient with trialysis cath or if he needed to have hemosplit. Trialysis is alright for them. Starr called back and stated that [facility] requires patient to have trach before going to LTACH. KELLY notified nursing staff of this. Starr stated she would continue to work on auth. CM will continue to follow and assist in discharge planning / needs. DCP- Discharge Planning Updated by [id number]: Fely Bear on 09/26/18 4:[address] CM spoke with patient regarding Electrical Laboratory Technician Acute Care. CM explained that because he hasn't been able to be weaned off vent then we are looking into remote computer terminal operator care and possible trach / peg. Spouse verbalized understanding. CM explained that there is a facility in [place] that would be the closest to her home. She would like to think it over and get back with CM in the morning. Patient has had to start on hemodialysis today. CM will continue to follow and assist as needed with discharge planning /needs. DCP- Discharge Planning Updated by [id number]: Fely Bear on 09/25/18 5:[address] CM received order for LTACH and was later notified that Dr. Benjamin requested to hold off on LtACH for now. CM will continue to follow and assist as needed with d/c planning/ needs. DCP- Discharge Planning Updated by [id number]: Fely Marshr on 09/22/18 5:[address] CM spoke with patient's regarding potential placement / rehab. Spouse at this time isn't wanting to talk about any kind of placement. She stated that she doesn't drive and it would be best if he could have therapy at home. CM spoke with Dr. Casarez he stated that at this time it is to early to think of LTACH placement. CM will continue to follow and assist as needed with discharge planning /needs DCP- Discharge Planning Updated by [id number]: Fely Marianela on 09/20/18 5:[address] CM spoke with respiratory and plans for Bronch on and possible extubation the next day. Fariha states that they have been weaning down vent. May want to wait on LTACH eval. CM will continue to follow and assist as needed with discharge planning / needs. DCP- Discharge Planning Updated by [id number]: Ann Pretty on 09/14/18 3:[address] Patient Name: SYMONE SANTOS Admission Status: ER Accout number: [id number] Admission Date: 09-14-2018 : 1940 Admission Diagnosis: Attending: JOE VASQUEZ Current LOS: 1 Anticipated DC Date: 09-18-2018 Planned Disposition: Home Primary Insurance: [employer] CHO[employer] PPO MCR ADVANT Discharge Planning Comments: CM met with patient's granddaughter (Yusra Fine [phone]) in the room to complete initial dc planning assessment. Patient on the vent and unable to complete assessment. CM educated Yusra on the CM role and verbal consent given by Yusra to complete assessment. CM verified patient's address, phone number, and emergency contact phone numbers. 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 At discharge Yusra is hopeful the patient will be able to return home and feels this is a safe discharge. CM discussed availability of home health, rehab services, and medical equipment. Yusra denied known discharge needs at this time. She reports patient's grandson Remington or another family member will transport him home at time of discharge. CM will continue to follow and will assist as needed with dc plans/needs. Geospatial Information Scientist: Ann Pretty RN, [facility] DCPIA - Discharge Planning Initial Assessment Updated by [email or web address]: Ann Pretty on 09/14/18 3:56 pm * Is the patient Alert and Oriented? No * PCP Dr. Louis Tejada * Pharmacy [facility] in [place] * Preadmission Environment Home with Family * ADLs Independent * Equipment None * List name and contact numbers for known caregivers / representatives who currently or will assist patient after discharge: Lashay Santos - Spouse - [phone] Yusra Monson grand-daughter - [phone] * Verbal permission to speak to the caregivers and representatives has been obtained from the patient. Yes * Community resources currently utilized None * Additional services required to return to the preadmission environment? No * Can the patient safely return to the preadmission environment? Yes * Has this patient been hospitalized within the prior 30 days at any hospital? No Coverage Notice Reviewer: [id number] Iona Bera Notice Issued Date-Time: 09/27/2018 13:30 Notice Type: Patient Choice Letter Notice Delivered To: Family Member Relationship to Patient: Spouse Message Broker Developer Name: Lashay Santos Delivery Method: HAND - Hand Delivered Hilaria Days: Prior Verbal Notification: Recipient Understood Notice: Yes Recipient Signature: Yes Med Rec Note Co-signed by Attending: Coverage Notice Comment: KATHY BARNEY Reviewer: [id number] Iona Bear Notice Issued Date-Time: 10/12/2018 12:05 Notice Type: IM Discharge Notice Notice Delivered To: Family Member Relationship to Patient: Spouse Message Broker Developer Name: LASHAY SANTOS Delivery Method: PHONE - Phone Hilaria Days: Prior Verbal Notification: Recipient Understood Notice: Yes Recipient Signature: Yes Med Rec Note Co-signed by Attending: Coverage Notice Comment: Last DP export: 10/11/18 5:09 pm Patient Name: SYMONE SANTOS Page [id number] at 4 All edits/amendments must be made on the electronic document DICTATION DATE: 10/13/181923 HYDRO MECHANIC: TALON 10/13/181923 RPT#: [id number] DC DATE:10/12/18 STATUS: DIS IN [facility] [address] [place] [address] END OF REPORT
== END 2018-10-12 13:25 | disposition short-term general hospital (02) | DRG 4 ==
LOC: D.ER 13:24 → D.ICU 15:37
PROVIDERS: Emergency Medicine; Family Medicine; General Practice; Internal Medicine Gastroenterology; Internal Medicine Nephrology; Internal Medicine Pulmonary Disease; Legal Medicine; Radiology Diagnostic Radiology; ADMIT Family Medicine; ATTEND Family Medicine
PROC: 5A1955Z Respiratory Ventilation, Greater than 96 Consecutive Hours (ICD-10-PCS; 2018-09-14)
PROC: 0B9F7ZX Drainage of Right Lower Lung Lobe, Via Natural or Artificial Opening, Diagnostic (ICD-10-PCS; principal; 2018-09-15 13:49)
PROC: 0W993ZZ Drainage of Right Pleural Cavity, Percutaneous Approach (ICD-10-PCS; 2018-09-22)
PROC: 05HM33Z Insertion of Infusion Device into Right Internal Jugular Vein, Percutaneous Approach (ICD-10-PCS; 2018-09-26)
PROC: 0B9F8ZX Drainage of Right Lower Lung Lobe, Via Natural or Artificial Opening Endoscopic, Diagnostic (ICD-10-PCS; 2018-09-27)
PROC: 0B113F4 Bypass Trachea to Cutaneous with Tracheostomy Device, Percutaneous Approach (ICD-10-PCS; 2018-09-29)
PROC: 0BJ08ZZ Inspection of Tracheobronchial Tree, Via Natural or Artificial Opening Endoscopic (ICD-10-PCS; 2018-09-29)
DX: A41.9 Sepsis, unspecified organism (principal); R65.21 Severe sepsis with septic shock; J96.01 Acute respiratory failure with hypoxia; J18.1 Lobar pneumonia, unspecified organism; N17.0 Acute kidney failure with tubular necrosis; G93.41 Metabolic encephalopathy; E87.2 Acidosis; N39.0 Urinary tract infection, site not specified; E87.1 Hypo-osmolality and hyponatremia; J44.1 Chronic obstructive pulmonary disease with (acute) exacerbation; E46 Unspecified protein-calorie malnutrition; I25.10 Atherosclerotic heart disease of native coronary artery without angina pectoris; I10 Essential (primary) hypertension; D64.9 Anemia, unspecified; D69.6 Thrombocytopenia, unspecified; I48.91 Unspecified atrial fibrillation; E87.5 Hyperkalemia; D50.9 Iron deficiency anemia, unspecified; E87.6 Hypokalemia

== ENCOUNTER → 2018-12-21 10:50 | Outpatient (CLI) | payer MEDICARE ==
[2018-09-16 12:08] VITALS: BMI 32.0
[~2018-12-21 10:50] MED LIST: BAYER CHEWABLE81 MG PO; CALMOSEPTINE OI71 GM TOPICAL; CARDIZEM30 MG NG; GLUCAGEN1 MG/VIAL IM; GLUCAGEN1 MG/VIAL SC; HEPARIN SO1000 UNIT/ INJ; HEPARIN SO1000 UNIT/ IV; HUMULIN R100 U/ML SC; IPRAT-ALBUT 0.5-3 ML UPD; LISINOPRIL5 MG PO; Lovenox INJ SC; ROBITUSSIN DM 110 ML PO; Retacrit SC; ZYRTEC10 MG PO
== END | disposition home or self-care (01) ==
LOC: D.US 10:50
PROVIDERS: ATTEND Internal Medicine
DX: N18.4 Chronic kidney disease, stage 4 (severe) (principal); N17.9 Acute kidney failure, unspecified; I12.0 Hypertensive chronic kidney disease with stage 5 chronic kidney disease or end stage renal disease; E87.2 Acidosis; D63.1 Anemia in chronic kidney disease

== ENCOUNTER → 2019-05-28 06:22 | Outpatient (CLI) | payer MEDICARE ==
[~2019-05-28] VITALS: Ht 175.3 cm; Wt 82.7 kg
[~2019-05-28 06:22] MED LIST changes: +ACTIGALL 300 M300 MG; +HYDRALAZINE HCL50 MG PO; +LASIX20 MG PO; +PEPCID AC20 MG PO; +PHENERGAN25 M1; +SYNTHROID25 MCG
[2019-05-28 07:12] LABS: ALBUMIN 2.9 g/dL (3.4-5.0); ANION GAP 12.6 mmol/L (8-16); BILIRUBIN - TOTAL 0.53 mg/dL (0.2-1.3); CALCIUM 8.7 mg/dL (8.5-10.1); CARBON DIOXIDE 25.8 mmol/L (21.0-32.0); CREATININE - SERUM 2.4 mg/dL (0.6-1.3); POTASSIUM - SERUM 4.4 mmol/L (3.5-5.1); PROTEIN - SERUM 7.6 g/dL (6.4-8.2)
[2019-05-28 07:19] LABS: BASOPHILS 0.1 % (0-2); EOSINOPHILS 2.1 % (0-7); HEMATOCRIT 39.1 % (42.0-54.0); HEMOGLOBIN 12.8 g/dL (13.5-17.5); IMMATURE GRANULOCYTES 0.1 % (0-5); LYMPHOCYTES 49.3 % (15-50); MCH 29.6 pg (26.0-34.0); MCHC 32.7 g/dL (31.0-37.0); MCV 90.3 fL (80.0-100.0); MEAN PLATELET VOLUME 11.3 fL (7.4-10.4); MONOCYTES 6.1 % (2-11); NEUTROPHILS 42.3 % (40-80); PLATELET COUNT 81 10x3/uL (130-400); RBC 4.33 10x6/uL (4.20-6.10); RDW 15.4 % (11.5-14.5); WBC 8.5 10x3/uL (4.8-10.8)
[2019-05-28 07:21] LABS: PROTIME 13.2 SECONDS (11.6-15.0)
--- NOTE | 2019-05-28 07:36 | NUR ---
0735-ABNORMAL LABS CALLED TO FABIO BRYANT RN IR NURSE.
[2019-05-28 08:02] VITALS: BP 123/61; Ht 175.3 cm; Wt 82.7 kg
--- NOTE | 2019-05-28 12:07 | NUR ---
1130-RECD TO ROOM FROM IR. ALERT. IV PATENT. RESP WITH EASE. R LOWER QUADRANT DRY AND INTACT WITH DERMABOND. DENIES PAIN, SOB. 1200-ALBUMIN STARTED, SANDWICH TRAY SERVED. DR ROCKWELL CALLS TO CHECK ON PATIENT. JULY DISCHARGE AT 1330 IF CRITERIA MET. AT BEDSIDE AND INFORMED.
--- NOTE | 2019-05-28 13:32 | NUR ---
1300-IV D/C 1315-UP TO BATHROOM, VOIDED AND DRESSED. 1325-DISCHARGE INSTRUCTIONS REVIEWED. 1330-D/C HOME WITH PER WHEELCHAIR.
== END | disposition home or self-care (01) ==
LOC: D.SP 06:22 → D.CT 09:00 → D.SP 09:00
PROVIDERS: Specialist; ATTEND Internal Medicine Gastroenterology
DX: R18.8 Other ascites (principal); E03.9 Hypothyroidism, unspecified; K21.9 Gastro-esophageal reflux disease without esophagitis